=== PATIENT | male | born 1950 | race Two or more races ===

== ENCOUNTER 2020-10-29 15:28 | Outpatient (REF) | payer OTHER, SELFPAY ==
--- NOTE | 2020-10-29 15:36 | XR_ITS ---
EXAMINATION: X-RAY BILATERAL SHOULDERS CLINICAL INFORMATION: Shoulder pain COMPARISON: Right shoulder 05/04/2019 TECHNIQUE: Bilateral shoulder 4 views FINDINGS: Right shoulder: Mild AC joint arthritis. Subtle subchondral sclerosis of the superior aspect of the humeral head, with the previously noted articular surface irregularity not clearly evident in today's study. Small inferior glenoid spurring. No acute fractures seen. Left shoulder: Mild to moderate AC joint arthritis. No fracture or dislocation. Joint spaces are maintained. XR/XR shoulder LT min 2V IMPRESSION: Right shoulder: 1. Mild AC joint arthritis. 2. Subtle subchondral sclerosis of the superior aspect of the humeral head. No acute fracture seen. Left shoulder: 1. Mild to moderate AC joint arthritis. No acute findings.
--- NOTE | 2020-10-29 15:36 | XR_ITS ---
EXAMINATION: X-RAY BILATERAL SHOULDERS CLINICAL INFORMATION: Shoulder pain COMPARISON: Right shoulder 05/04/2019 TECHNIQUE: Bilateral shoulder 4 views FINDINGS: Right shoulder: Mild AC joint arthritis. Subtle subchondral sclerosis of the superior aspect of the humeral head, with the previously noted articular surface irregularity not clearly evident in today's study. Small inferior glenoid spurring. No acute fractures seen. Left shoulder: Mild to moderate AC joint arthritis. No fracture or dislocation. Joint spaces are maintained. XR/XR shoulder RT min 2V IMPRESSION: Right shoulder: 1. Mild AC joint arthritis. 2. Subtle subchondral sclerosis of the superior aspect of the humeral head. No acute fracture seen. Left shoulder: 1. Mild to moderate AC joint arthritis. No acute findings.
== END 2020-10-29 15:29 | disposition home or self-care (01) ==
LOC: HO.XRAY 15:28
PROVIDERS: PCP Physician Assistant; Visit Provider Physician Assistant
DX: M25.511 Pain in right shoulder (principal); M25.512 Pain in left shoulder
CPT/HCPCS: 73030

== ENCOUNTER 2020-10-30 06:05 | Outpatient (REF) | payer OTHER, SELFPAY ==
[2020-10-30 07:10] LABS: MANUAL DIFF FLAG NO
[2020-10-30 07:11] LABS: Basophils Percent Auto 0.3 % (0-2); Eosinophils Absolute Auto 0.2 X10*3/uL (0.0-0.4); Eosinophils Percent Auto 1.6 % (0-4); Hematocrit 39.5 % (42-52); Hemoglobin 12.1 g/dl (14.0-18.0); Imm Gran Abs Auto 0.01 X10*3/uL (0.00-0.03); Imm Gran Pct Auto 0.1 % (0.0-0.4); Lymphocytes Absolute Auto 2.9 X10*3/uL (1.2-4.9); Lymphocytes Percent Auto 30.2 % (20-40); Mean Corpuscular HGB Conc 30.6 g/dl (31.0-36.0); Mean Corpuscular Hemoglobin 25.1 pg (27.0-33.0); Monocytes Absolute Auto 0.8 X10*3/uL (0.1-1.2); Neutrophils Absolute Auto 5.8 X10*3/uL (2.0-8.3); Neutrophils Percent Auto 59.8 % (45-73); Platelet Count 256 X10*3/uL (160-400); Red Blood Count 4.82 X10*6/uL (4.60-5.80); Red Cell Distribution Width 14.9 % (11.0-16.0); White Blood Count 9.7 X10*3/uL (4.8-10.8)
[2020-10-30 07:39] LABS: Alanine Aminotransferase 12 U/L (0-40); Albumin Level 4.6 g/dL (3.5-5.0); Alkaline Phosphatase 70 U/L (39-117); Anion Gap 13 (12-20); Aspartate Amino Transferase 17 U/L (5-37); Bilirubin Total 0.7 mg/dL (0.0-1.0); Blood Urea Nitrogen 27 mg/dL (9-16); Calcium 9.6 mg/dL (8.4-10.2); Carbon Dioxide 31 mmol/L (22-29); Chloride 104 mmol/L (96-108); Cholesterol 138 mg/dL; Estimated Glomerular Filt Rate > 60; Glucose Fasting 129 mg/dL (60-99); HDL Cholesterol 52 mg/dL; LDL Cholesterol Calculated 76 mg/dl; Potassium 4.7 mmol/l (3.3-5.1); Sodium 143 mmol/L (135-145); Total Protein 7.2 g/dL (6.5-8.0); Triglycerides 54 mg/dL
[2020-10-30 07:41] LABS: Estimated Average Glucose 166 mg/dL; Hemoglobin A1c % 7.4 %
[2020-10-30 18:44] LABS: Creatinine Urine 175.71 mg/dL; Microalbum/Creatinine Ratio Ur 5.1 ug/mg cr
== END 2020-10-30 06:06 | disposition home or self-care (01) ==
LOC: HO.LAB 06:05
PROVIDERS: Visit Provider Physician Assistant
DX: I10 Essential (primary) hypertension (principal); E11.9 Type 2 diabetes mellitus without complications; E78.2 Mixed hyperlipidemia; Z12.5 Encounter for screening for malignant neoplasm of prostate
CPT/HCPCS: 36415; 80053; 80061; 82043; 83036; 84153; 84443; 85025

== ENCOUNTER 2021-06-08 08:04 | Emergency (ER) | payer OTHER, SELFPAY ==
--- NOTE | ~2021-06-08 | CT_ITS ---
EXAMINATION: CT BRAIN, CT CERVICAL SPINE WITHOUT CONTRAST. CT CHEST WITHOUT CONTRAST. CLINICAL INFORMATION: Fell and hit head. Rule out intracranial bleed. Pain left posterior rib. COMPARISON: CT brain 05/04/2019 TECHNIQUE: 5 mm thin axial and reformatted 2 mm thin sagittal and coronal images of brain were obtained. DLP 748 Subsequently axial 3 mm thin and reformatted 2 mm thin sagittal and coronal images of cervical spine were obtained. DLP 352 Axial 5 mm thin and reformatted 3 mm thin images of chest were obtained. DLP FINDINGS: BRAIN: There is no acute intra-axial, extra-axial bleed, masses or midline shift. There is no acute infarction in evolution. There is no edema or mass effect. The lateral ventricles are symmetrical in size and configuration without enlargement. Bone windows reveal no calvarial abnormality. No scalp soft tissue swelling seen. Bilateral paranasal sinuses and mastoid air cells are well-aerated. CERVICAL SPINE: On sagittal reconstructed images there is maintained cervical lordosis. There is a large anterior longitudinal bridging osteophytes from C3 through C7 vertebra. The craniovertebral junction and the C1-C2 alignment is normal. No visible acute fracture, dislocation or subluxation seen. The prevertebral and paravertebral soft tissues are normal. Visualized bilateral TM joints, mandible appears normal. The anterior neck soft tissues are normal. Visualized thyroid lobes, parotid and the submandibular gland appears symmetrical and normal. No abnormal neck lymphadenopathy seen. CHEST: The lungs are well-expanded and clear of acute pneumonic process. No lung contusion, mass or groundglass density seen. There is ill-defined small opacity left upper lobe measuring 3 to 4 mm image 15/25 and image 39/29, likely ill-defined parenchymal scarring or atelectasis. There is a 2 mm noncalcified nodule left lower lobe axial image 31/25.. There is a 5 mm calcified nodule left lower lobe, The thyroid lobes are symmetric and normal. The central trachea and the bronchi widely patent. Heart size and the great vessels are normal caliber. There are coronary artery calcifications present. There are benign pretracheal and paratracheal lymph nodes with a short axis measurement of 6 mm and less. There is no pleural effusion, thickening or pneumothorax. Bone windows reveal no visible left rib fracture or bony abnormality. Visualized liver, spleen, pancreas and bilateral adrenal glands are unremarkable. There is moderate spondylosis throughout dorsal spine. CT/CT cervical spine wo con IMPRESSION: No acute intracranial process seen. There is no acute fracture, dislocation or subluxation. There are large bridging ventral osteophytes from C3 to C7 vertebra. No acute process seen in the chest. There is bibasilar atelectasis and/or scarring. Is a calcified granuloma left lower lobe and ill-defined tiny opacity in the left upper lobe likely chronic scarring or developing atelectasis.
[2021-06-08 09:30] VITALS: BP 153/89; PULSE 70; RESP 18; TEMP 36.9; O2SAT 99; BMI 26.6
[2021-06-08 12:23] VITALS: BP 146/88; PULSE 80; RESP 18; O2SAT 100
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
--- NOTE | 2021-06-08 14:17 | ED.BACK ---
HPI - Back Pain/Injury General Chief Complaint: Back Pain/Injury Stated Complaint: fall Time Seen by Provider: 06/08/21 14:07 Source: patient Mode of arrival: ambulatory Limitations: no limitations History of Present Illness HPI Narrative: 70-year-old male with a past medical history of gout, hypertension, hyperlipidemia, [id number] diabetes here with complaints of upper back pain after mechanical fall Monday evening. Patient tells me that he tripped falling backwards hitting his upper back on the ground. Unsure if he hit his head but does not believe he lost consciousness. No anticoagulation use. Here complaining of upper back pain. No headache, vision changes, nausea, vomiting, dizziness. Pain is worsened with movement, deep breathing and palpation. Using Motrin at home with continued pain MD elicited complaint: fall Related Data Home Medications Medication Instructions Recorded Confirmed prednisone 1 mg tablet 4 mg PO DAILY 03/24/21 03/24/21 Previous Rx's Medication Instructions Recorded acetaminophen 500 mg tablet 500 mg PO Q6H PRN 30 Days #120 tab 03/24/21 allopurinol 300 mg tablet 300 mg PO DAILY 90 Days #90 tab 03/24/21 baclofen 10 mg tablet 10 mg PO DAILY 30 Days #30 tab 03/24/21 glyburide 2.5 mg tablet 2.5 mg PO DAILY 60 Days #60 tab 03/24/21 ibuprofen 800 mg tablet 800 mg PO TID 30 Days #90 tab 03/24/21 losartan 100 mg tablet 100 mg PO DAILY 90 Days #90 cap 03/24/21 metformin 1,000 mg tablet 1,000 mg PO BID #60 cap 03/24/21 metoprolol tartrate 50 mg tablet 75 mg PO BID 90 Days #270 tab 03/24/21 simvastatin 20 mg tablet 20 mg PO BEDTIME #90 cap 03/24/21 cyclobenzaprine 10 mg PO TID PRN #10 tab 06/08/21 lidocaine [Lidoderm] 1 patch TOPICAL DAILY #15 ea 06/08/21 Allergies Allergy/AdvReac Type Severity Reaction Status Date / Time celecoxib [From CELEBREX] Allergy Intermediate SWELLING Verified 06/08/21 09:30 TETANUS Allergy Unknown Unknown Verified 06/08/21 09:30 Review of Systems Review of Systems: Yes all other systems are reviewed and are negative Constitutional: Constitutional: Reports no additional constitutional complaints, Denies body ache(s), Denies chills, Denies fever(s), Denies headache(s) and Denies weakness Eyes: Eyes: Reports no additional eye complaints and Denies change in vision ENT: Reports system reviewed and no additional complaints, except as documented, Denies dizziness, Denies headache(s), Denies nasal congestion, Denies nasal discharge and Denies neck pain Cardiovascular: Cardiovascular: Reports no additional cardiovascular complaints, Denies chest pain, Denies leg edema and Denies dyspnea Respiratory: Respiratory: Reports no additional respiratory complaints, Denies cough and Denies dyspnea Gastrointestinal: Gastrointestinal: Reports no additional gastrointestinal complaints, Denies abdominal pain, Denies diarrhea, Denies nausea and Denies vomiting Genitourinary: Genitourinary: Denies urinary incontinence Musculoskeletal: Musculoskeletal: Reports no additional musculoskeletal complaints, Reports back pain, Denies arthralgias, Denies joint swelling, Denies neck pain, Denies numbness and Denies tingling Integumentary/Breasts: Skin/Breast: Reports system reviewed and no additional complaints, except as docu and Denies rash Neurologic: Reports system reviewed and no additional complaints, except as documented, Denies Abnormal speech present, Denies dizziness, Denies headache(s), Denies numbness, Denies tingling and Denies weakness PMFSH Past Medical History Attestation statement: The following information was validated with the patient. Source: old records reviewed and nursing notes reviewed Surgical History H/O left knee surgery History of hip surgery History of left knee replacement Family History Family History Father Heart attack Mother Diabetes Heart attack Family/Other Diabetes Social History Social History Alcohol intake: current Alcohol intake frequency: a few times a month Advance Directives: No Advance Directives Information Provided: No Current occupational status: employed Current occupation: [employer] Physical Exam Vital Signs: Vital Signs: Last Vital Signs Temp 98.5 F 06/08/21 09:30 Pulse 80 06/08/21 12:23 Resp 18 06/08/21 12:23 BP 146/88 H 06/08/21 12:23 Pulse Ox 100 06/08/21 12:23 Body Mass Index 26.6 Const: General: cooperative, healthy appearing, comfortable and no acute distress Orientation/consciousness: patient oriented x3 Limitations: no limitations HENMT: Head: Yes normal to inspection Ears: hearing grossly normal bilaterally General nose exam: Normal external nose present Face and sinus: Yes normal facial exam Mouth: Normal oral and palatal mucosa present Throat: Yes posterior oropharynx normal Eyes: General: appearance normal, both eyes and all related structures Pupils: Equal, round and reactive pupils present Neck: Neck: Yes normal visual inspection Chest: Chest palpation & inspection: normal inspection of the chest Resp: Effort & Inspection: normal respiratory effort Auscultation: clear to auscultation bilaterally Cardio: Rate: regular rate Rhythm: regular rhythm Peripheral pulses: Peripheral pulses 2+ throughout GI: Inspection: Yes normal to inspection Palpation (GI): Soft to palpation and nontender Auscultation: normal bowel sounds Back/Spine/Pelvis: Other: Upper thoracic tenderness with no step-offs or deformities. No ecchymosis or crepitus noted. Tenderness over the bilateral soft tissue thoracic area with no obvious ecchymosis. Tenderness over the left posterior ribs with no crepitus or deformity noted. Mild lower cervical midline tenderness with no step-offs or deformities. Full range of motion. Thoracic/Lumbar Spine: thoracic and lumbar spine normal to inspection Skin: General skin exam: no rashes or lesions noted Neuro: General: patient oriented x3, no focal motor deficits and normal sensation to monofilament Cranial nerves: Yes CN's II-XII intact bilaterally, Yes Equal, round and reactive pupils present, Yes Bilaterally intact EOM present, Yes Nystagmus not present, Yes Normal facial strength present and Yes Midline tongue present Cognition (Neuro): normal cognition Speech: No Abnormal speech present Gait exam (Neuro): Normal gait present Motor exam (neuro): 5/5 motor strength present throughout Sensory Exam: Normal double simultaneous stimulation for sensation Extrem: General: Yes normal to inspection Course Course Course Narrative: 70-year-old male here with upper back and lower neck pain after mechanical fall 2 days ago. Unsure of head injury. Normal neuro exam. Will check labs, CT chest/neck/head, provide analgesia and re-assess. 1600-CT shows no acute finding. Labs are unremarkable. Patient is feeling improved. Likely contusion. Reviewed worrisome signs symptoms of when to return to the emergency department. Comfortable discharge home. MDM - Back Pain/Injury MDM Narrative Medical decision making narrative: Contusion versus fracture Medical Records Attestation: I reviewed the patient's medical records. Lab Data Attestation: I reviewed the patient's lab results. Result diagrams: 06/08/21 14:27 06/08/21 14:27 Labs: Lab Results 06/08/21 06/08/21 Range/Units 14:27 14:27 WBC 7.2 (4.8-10.8) X10*3/uL RBC 5.05 (4.60-5.80) X10*6/uL Hgb 13.0 L (14.0-18.0) g/dl Hct 42.3 (42-52) % MCV 83.8 (80-98) fL MCH 25.7 L (27.0-33.0) pg MCHC 30.7 L (31.0-36.0) g/dl RDW 14.6 (11.0-16.0) % Plt Count 262 (160-400) X10*3/uL MPV 10.6 (9.4-12.4) fL Immature Gran % (Auto) 0.3 (0.0-0.4) % Neut % (Auto) 61.7 (45-73) % Lymph % (Auto) 29.0 (20-40) % [place] % (Auto) 7.5 (2-11) % Eos % (Auto) 1.1 (0-4) % Baso % (Auto) 0.4 (0-2) % Lymph # (Auto) 2.1 (1.2-4.9) X10*3/uL [place] # (Auto) 0.5 (0.1-1.2) X10*3/uL Eos # (Auto) 0.1 (0.0-0.4) X10*3/uL Baso # (Auto) 0.0 (0.0-0.2) X10*3/uL Abs Immat Gran (auto) 0.02 (0.00-0.03) X10*3/uL Absolute Neuts (auto) 4.5 (2.0-8.3) X10*3/uL Absolute Nucleated RBC 0.000 (0.0-0.012) X10*3/uL Nucleated RBC % (auto) 0.0 (0.0-0.2) /100WBC Sodium 144 (135-145) mmol/L Potassium 4.3 (3.3-5.1) mmol/L Chloride 108 (96-108) mmol/L Carbon Dioxide 27 (22-29) mmol/L Anion Gap 13 (12-20) BUN 21 H (9-16) mg/dL Creatinine 0.95 (0.5-1.4) mg/dL Estim Creat Clear Calc 72.0 Estimated GFR > 60 Random Glucose 157 H (60-115) mg/dL Calcium 9.7 (8.4-10.2) mg/dL Imaging Data CT chest/head/neck: Attestation: I personally reviewed and interpreted this imaging study as follows: Radiologist's impression: FINDINGS: BRAIN: There is no acute intra-axial, extra-axial bleed, masses or midline shift. There is no acute infarction in evolution. There is no edema or mass effect. The lateral ventricles are symmetrical in size and configuration without enlargement. Bone windows reveal no calvarial abnormality. No scalp soft tissue swelling seen. Bilateral paranasal sinuses and mastoid air cells are well-aerated. CERVICAL SPINE: On sagittal reconstructed images there is maintained cervical lordosis. There is a large anterior longitudinal bridging osteophytes from C3 through C7 vertebra. The craniovertebral junction and the C1-C2 alignment is normal. No visible acute fracture, dislocation or subluxation seen. The prevertebral and paravertebral soft tissues are normal. Visualized bilateral TM joints, mandible appears normal. The anterior neck soft tissues are normal. Visualized thyroid lobes, parotid and the submandibular gland appears symmetrical and normal. No abnormal neck lymphadenopathy seen. CHEST: The lungs are well-expanded and clear of acute pneumonic process. No lung contusion, mass or groundglass density seen. There is ill-defined small opacity left upper lobe measuring 3 to 4 mm image 15/25 and image 39/29, likely ill-defined parenchymal scarring or atelectasis. There is a 2 mm noncalcified nodule left lower lobe axial image 31/25.. There is a 5 mm calcified nodule left lower lobe, The thyroid lobes are symmetric and normal. The central trachea and the bronchi widely patent. Heart size and the great vessels are normal caliber. There are coronary artery calcifications present. There are benign pretracheal and paratracheal lymph nodes with a short axis measurement of 6 mm and less. There is no pleural effusion, thickening or pneumothorax. Bone windows reveal no visible left rib fracture or bony abnormality. Visualized liver, spleen, pancreas and bilateral adrenal glands are unremarkable. There is moderate spondylosis throughout dorsal spine. Discharge Plan Discharge Clinical Impression: Contusion of back wall of thorax Patient Disposition: Home, Self-Care Instructions: Contusion in Adults (ED) Additional Instructions: Heat or ice Gentle stretching Follow-up with primary care as needed Prescriptions: New cyclobenzaprine 10 mg tablet 10 mg PO TID PRN (Reason: muscle spasm) Qty: 10 RF: 0 lidocaine [Lidoderm] 5 % adhesive patch,medicated 1 patch topical DAILY Qty: 15 RF: 0 No Action prednisone 1 mg tablet 4 mg PO DAILY RF: 0 acetaminophen 500 mg tablet 500 mg PO Q6H PRN (Reason: fever) 30 Days Qty: 120 RF: 1 allopurinol 300 mg tablet 300 mg PO DAILY 90 Days Qty: 90 RF: 1 baclofen 10 mg tablet 10 mg PO DAILY 30 Days Qty: 30 RF: 1 ibuprofen 800 mg tablet 800 mg PO TID 30 Days Qty: 90 RF: 3 losartan 100 mg tablet 100 mg PO DAILY 90 Days Qty: 90 RF: 2 metformin 1,000 mg tablet 1,000 mg PO BID Qty: 60 RF: 5 metoprolol tartrate 50 mg tablet 75 mg PO BID 90 Days Qty: 270 RF: 1 simvastatin 20 mg tablet 20 mg PO BEDTIME Qty: 90 RF: 1 glyburide 2.5 mg tablet 2.5 mg PO DAILY 60 Days Qty: 60 RF: 0 Stand Alone Forms: Work/School Release Interventions: ED Discharge Assessment Last Done: 06/08/21 16:00 Discharge Date/Time: 06/08/21 16:02
[2021-06-08 14:32] LABS: MANUAL DIFF FLAG NO
[2021-06-08 14:33] LABS: Basophils Percent Auto 0.4 % (0-2); Eosinophils Absolute Auto 0.1 X10*3/uL (0.0-0.4); Eosinophils Percent Auto 1.1 % (0-4); Hematocrit 42.3 % (42-52); Imm Gran Abs Auto 0.02 X10*3/uL (0.00-0.03); Imm Gran Pct Auto 0.3 % (0.0-0.4); Lymphocytes Absolute Auto 2.1 X10*3/uL (1.2-4.9); Mean Corpuscular HGB Conc 30.7 g/dl (31.0-36.0); Mean Corpuscular Hemoglobin 25.7 pg (27.0-33.0); Mean Corpuscular Volume 83.8 fL (80-98); Mean Platelet Volume 10.6 fL (9.4-12.4); Monocytes Absolute Auto 0.5 X10*3/uL (0.1-1.2); Monocytes Percent Auto 7.5 % (2-11); Neutrophils Absolute Auto 4.5 X10*3/uL (2.0-8.3); Neutrophils Percent Auto 61.7 % (45-73); Platelet Count 262 X10*3/uL (160-400); Red Blood Count 5.05 X10*6/uL (4.60-5.80); Red Cell Distribution Width 14.6 % (11.0-16.0); White Blood Count 7.2 X10*3/uL (4.8-10.8)
[2021-06-08] MEDS: Morphine Sulfate 4 MG/ML CARTRIDGE IVPUSH (14:34)
[2021-06-08 14:59] LABS: Anion Gap 13 (12-20); Blood Urea Nitrogen 21 mg/dL (9-16); Calcium 9.7 mg/dL (8.4-10.2); Carbon Dioxide 27 mmol/L (22-29); Chloride 108 mmol/L (96-108); Estimated Glomerular Filt Rate > 60; Glucose Random 157 mg/dL (60-115); Potassium 4.3 mmol/L (3.3-5.1); Sodium 144 mmol/L (135-145)
== END 2021-06-08 16:02 | disposition home or self-care (01) ==
PROVIDERS: Nurse Practitioner Family; Emergency Provider Emergency Medicine Emergency Medical Services; PCP Physician Assistant
DX: S20.222A Contusion of left back wall of thorax, initial encounter (principal); W17.89XA Other fall from one level to another, initial encounter; E11.9 Type 2 diabetes mellitus without complications; I10 Essential (primary) hypertension; Y93.9 Activity, unspecified; Y92.9 Unspecified place or not applicable; Y99.9 Unspecified external cause status
CPT/HCPCS: 36415; 70450; 71250; 72125; 80048; 85025; 96374; 99284; J2270

== ENCOUNTER 2021-06-30 07:57 | Outpatient (REF) | payer OTHER, SELFPAY | END 2021-06-30 07:58 | disposition home or self-care (01) | LOC: HO.LAB 07:57 | PROVIDERS: PCP Physician Assistant; Visit Provider Internal Medicine | DX: Z20.822 Contact with and (suspected) exposure to COVID-19 (principal) | CPT/HCPCS: C9803; U0003; U0005 ==

== ENCOUNTER 2021-08-05 05:59 | Outpatient (REF) | payer OTHER, SELFPAY ==
[2021-08-05 07:30] LABS: Hematocrit 38.4 % (42-52); Hemoglobin 11.6 g/dl (14.0-18.0); Mean Corpuscular HGB Conc 30.2 g/dl (31.0-36.0); Mean Corpuscular Hemoglobin 25.2 pg (27.0-33.0); Mean Corpuscular Volume 83.5 fL (80-98); Mean Platelet Volume 11.2 fL (9.4-12.4); Platelet Count 260 X10*3/uL (160-400); Red Cell Distribution Width 14.8 % (11.0-16.0); White Blood Count 7.5 X10*3/uL (4.8-10.8)
[2021-08-05 07:44] LABS: Alanine Aminotransferase 13 U/L (0-40); Albumin Level 4.3 g/dL (3.5-5.0); Alkaline Phosphatase 56 U/L (39-117); Anion Gap 10 (12-20); Aspartate Amino Transferase 17 U/L (5-37); Bilirubin Total 0.8 mg/dL (0.0-1.0); Blood Urea Nitrogen 20 mg/dL (9-16); Calcium 9.6 mg/dL (8.4-10.2); Carbon Dioxide 28 mmol/L (22-29); Chloride 106 mmol/L (96-108); Cholesterol 179 mg/dL; Estimated Glomerular Filt Rate > 60; Glucose Fasting 107 mg/dL (60-99); HDL Cholesterol 64 mg/dL; LDL Cholesterol Calculated 102 mg/dl; Sodium 140 mmol/L (135-145); Total Protein 6.8 g/dL (6.5-8.0); Triglycerides 66 mg/dL
[2021-08-05 07:47] LABS: Creatinine Urine 72.11 mg/dL; Microalbumin Urine < 5.0 mg/L
[2021-08-05 08:06] LABS: Prostate Specific Antigen Scr 0.65 ng/mL (<0.05-4.0); TSH reflex Free T4 2.25 uIU/mL (0.32-4.0)
== END 2021-08-05 06:00 | disposition home or self-care (01) ==
LOC: HO.LAB 05:59
PROVIDERS: PCP Physician Assistant; Visit Provider Physician Assistant
DX: Z12.5 Encounter for screening for malignant neoplasm of prostate (principal); E78.2 Mixed hyperlipidemia; I10 Essential (primary) hypertension
CPT/HCPCS: 36415; 80053; 80061; 82043; 84153; 84443; 85027

== ENCOUNTER 2021-11-03 07:02 | Day surgery (SDC) | payer OTHER, SELFPAY ==
[2021-10-27 10:01] VITALS: BMI 26.5
--- NOTE | 2021-11-01 13:11 | P.CONAN_ITS ---
Documented by User: Jessie Nur NP 11/01/21 13:12 HPI - Anesthesia Eval Consult details Narrative: 70yo M for Colonoscopy PMFSH Active Problems Active Problems: All Active Problems (Updated 10/27/21 @ 09:55 by Divya Echevarria RN) HTN (hypertension) (Acute) DMII (diabetes mellitus, type 2) (Acute) HLD (hyperlipidemia) (Acute) Left shoulder pain (Acute) Right shoulder pain (Acute) Annual physical exam (Acute) Gout (Acute) Tubular adenoma of colon (Acute) Past Medical History Medical History (Updated 10/27/21 @ 09:55 by Divya Echevarria RN) Arthritis DM type 2 (diabetes mellitus, type 2) Gout HTN (hypertension) Hyperlipidemia On beta radha at home Family History Family History Father Heart attack Mother Diabetes Heart attack Family/Other Diabetes Surgical History Surgical History (Updated 10/27/21 @ 09:55 by Divya Echevraria RN) H/O left knee surgery History of esophagogastroduodenoscopy (EGD) History of hip surgery History of left knee replacement Hx of colonoscopy Social History Social History Housing: House Alcohol intake: current Alcohol intake frequency: a few times a month Patient Tobacco Use Status: Never used Tobacco Tobacco use type: Cigarette e-Cigarette/Vaping Use: Never Used Second Hand Smoke Exposure: No Are you DNR?: No Advance Directives: No Advance Directives Information Provided: No Advance Directives on File: No Recently lost weight without trying: No Eating poorly because of decreased appetite: No Nutrition Risks: No Nutritional Risk Current occupational status: employed Current occupation: [employer] Allergies Allergy/AdvReac Type Severity Reaction Status Date / Time celecoxib [From CELEBREX] Allergy Intermediate SWELLING Verified 11/03/21 07:14 TETANUS Allergy Unknown Unknown Verified 11/03/21 07:14 Home Medications Medication Instructions Recorded Confirmed Last Taken Type prednisone 1 mg tablet 4 mg PO DAILY 03/24/21 10/27/21 Unknown History glyburide 2.5 mg tablet 1 tab PO DAILY 10/27/21 10/27/21 Unknown History Exam Exam Date and Time: November 01, 2021 1311 Height,Weight and Vital Signs: Height 5 ft 7.5 in Weight 78.018 kg Pertinent Lab Results Pertinent Lab Results: Laboratory Tests 08/05/21 08/05/21 06:10 06:10 WBC 7.5 Hgb 11.6 L Hct 38.4 L Plt Count 260 Sodium 140 Potassium 4.0 Chloride 106 Carbon Dioxide 28 BUN 20 H Creatinine 0.92 Assessment and Plan Assessment Anesthesia Assessment: Chart Reviewed Documented by User: Bebo Alvarenga 11/03/21 07:31 [facility] Past Medical History Medical History (Updated 10/27/21 @ 09:55 by Divya Echevarria RN) Arthritis DM type 2 (diabetes mellitus, type 2) Gout HTN (hypertension) Hyperlipidemia On beta radha at home Functional capacity: independent ambulation Family History Family History Father Heart attack Mother Diabetes Heart attack Family/Other Diabetes Family history of problems with anesthesia: No Surgical History Surgical History (Updated 10/27/21 @ 09:55 by Divya Echevarria RN) H/O left knee surgery History of esophagogastroduodenoscopy (EGD) History of hip surgery History of left knee replacement Hx of colonoscopy History of Problems with Anesthesia: No Social History Social History Housing: House Alcohol intake: current Alcohol intake frequency: a few times a month Patient Tobacco Use Status: Never used Tobacco Tobacco use type: Cigarette e-Cigarette/Vaping Use: Never Used Second Hand Smoke Exposure: No Are you DNR?: No Advance Directives: No Advance Directives Information Provided: No Advance Directives on File: No Recently lost weight without trying: No Eating poorly because of decreased appetite: No Nutrition Risks: No Nutritional Risk Current occupational status: employed Current occupation: [employer] Meds Allergies Allergy/AdvReac Type Severity Reaction Status Date / Time celecoxib [From CELEBREX] Allergy Intermediate SWELLING Verified 11/03/21 07:14 TETANUS Allergy Unknown Unknown Verified 11/03/21 07:14 Home Medications Medication Instructions Recorded Confirmed Last Taken Type prednisone 1 mg tablet 4 mg PO DAILY 03/24/21 10/27/21 Unknown History glyburide 2.5 mg tablet 1 tab PO DAILY 10/27/21 10/27/21 Unknown History Exam Airway Mallampati Class: III TM Dist: >3cm Neck ROM: Full Denture: Upper Loose/Missing/Broken Teeth: Yes Heart: rrr Lungs: bl breath sounds Assessment and Plan Final Anesthetic Review Family History of Problems with Anesthesia: No History of Problems with Anesthesia: No NPO: Yes ASA Class: II Final Preanesthetic Review: Meds/Allgs Chart Reviewed and Anes Risks/Benef Reviewed Anesthetic Plan Anesthetic Plan: MAC: Disposition: Standard PACU
[2021-11-03 07:44] VITALS: BP 135/78; PULSE 76; RESP 16; TEMP 36.3; O2SAT 99
[2021-11-03 07:48] LABS: Glucose, Whole Blood 181 mg/dL (60-115)
[2021-11-03] MEDS: Lactated Ringers 1,000 ML 100 ML IVCONT (08:09)
[2021-11-03 09:06] VITALS: BP 91/58; PULSE 69; RESP 15; TEMP 36.4; O2SAT 99
--- NOTE | 2021-11-03 09:06 | PM.OP ---
Brief Operative Note Date of Service: 11/03/21 Pre-op diagnosis: Screening Post-op diagnosis: other (Distal rectal polyps) Procedure: Colonoscopy to the cecum and TI with hot snare polypectomy x 2 Surgeon: Agustin Smith Anesthesia: MAC Was an Audio Visual Specialist used for this Procedure?: No Estimated blood loss (mL): 1.0 Pathology: other (A. Distal rectal polyps) Condition: stable Disposition: PACU
[2021-11-03 09:21] VITALS: BP 119/77; PULSE 68; RESP 16; TEMP 36.4; O2SAT 98
--- NOTE | 2021-11-03 09:30 | OP_ITS ---
SURGEON: Agusitn Smith MD INDICATIONS: The patient presents for evaluation of colorectal cancer screening and personal history of tubular adenoma of the colon. Full consent has been obtained from him for this, including risks of bleeding and perforation. PREOPERATIVE DIAGNOSIS: POSTOPERATIVE DIAGNOSIS: PROCEDURE PERFORMED: Colonoscopy to the cecum and terminal ileum with snare polypectomy. ESTIMATED BLOOD LOSS: COMPLICATIONS: ANESTHESIA: Monitored anesthesia care. ASSISTANTS: SPECIMENS: PREOPERATIVE DIAGNOSES: Colorectal cancer screening and personal history of tubular adenoma of the colon. POSTOPERATIVE DIAGNOSES: Colorectal cancer screening, personal history of tubular adenoma of the colon, distal rectal polyp, diverticulosis, internal hemorrhoids. DESCRIPTION OF PROCEDURE: The patient was placed in the left lateral decubitus position. The digital rectal exam revealed no abnormalities other than some hemorrhoidal tissue. The Olympus video pediatric colonoscope was entered into the rectum and advanced easily to the cecum. Once in the cecum, I did identify normal-appearing cecal pouch with appendiceal orifice and a normal-appearing ileocecal valve. The terminal ileum was cannulated and appeared normal. Scope was withdrawn back in the colon. The entire cecum and ileocecal valve appeared normal. The scope was slowly withdrawn assessing all mucosal surfaces carefully. Preparation was excellent. There was a [id number] amount of sigmoid diverticulosis. There was no sign of any colitis nor angiodysplasia. In the rectum, scope was retroflexed visualizing internal hemorrhoids as well as 2 distal rectal polyps. One was approximately 1 cm in diameter and the other was approximately 5 mm in diameter. These were adjacent to each other. The larger polyp was removed by snare polypectomy with piecemeal resection. This was a hot snare. I also used the hot snare to remove the smaller polyp. All specimens were placed in the same container by suction. The polypectomy sites appeared clean, without any sign of residual polyp nor bleeding. The scope was straightened and withdrawn from the patient. He tolerated the procedure well and was returned to recovery area in stable condition. IMPRESSION: 1. Distal rectal polyp, status post hot snare polypectomy. 2. Diverticulosis. 3. Internal hemorrhoids. PLAN: The results of the pathology will be checked. I would recommend a repeat colonoscopy in 5 years for further surveillance. He was advised not to use any aspirin and NSAIDs for 1 week. MD DEISY Duvall/RIGOBERTO / [phone]
--- NOTE | 2021-11-03 10:02 | PC.NURSE ---
Patient is bilinqual. , patient states he does not need an Home Organizer and understands all instructions provided
== END 2021-11-03 10:08 | disposition home or self-care (01) ==
PROVIDERS: PCP Physician Assistant; Visit Provider Internal Medicine
PROC: 0DJD8ZZ Inspection of Lower Intestinal Tract, Via Natural or Artificial Opening Endoscopic (ICD-10-PCS; CPT 45378; principal; 2021-11-03 08:10)
DX: Z12.11 Encounter for screening for malignant neoplasm of colon (principal); Z86.010 Personal history of colon polyps; D12.8 Benign neoplasm of rectum; K57.30 Diverticulosis of large intestine without perforation or abscess without bleeding; K64.8 Other hemorrhoids; I10 Essential (primary) hypertension; E78.5 Hyperlipidemia, unspecified; M10.9 Gout, unspecified; E11.9 Type 2 diabetes mellitus without complications; Z79.84 Long term (current) use of oral hypoglycemic drugs; Z79.52 Long term (current) use of systemic steroids; Z79.899 Other long term (current) drug therapy; Z88.8 Allergy status to other drugs, medicaments and biological substances
CPT/HCPCS: 45385; 82947; 88305

== ENCOUNTER 2022-01-06 06:38 | Outpatient (REF) | payer OTHER, SELFPAY ==
[2022-01-06 06:56] LABS: Hemoglobin 11.5 g/dl (14.0-18.0); Mean Corpuscular HGB Conc 31.1 g/dl (31.0-36.0); Mean Corpuscular Hemoglobin 25.7 pg (27.0-33.0); Mean Corpuscular Volume 82.6 fL (80.0-98.0); Mean Platelet Volume 10.2 fL (9.4-12.4); Platelet Count 249 X10*3/uL (160-400); Red Blood Count 4.48 X10*6/uL (4.60-5.80); Red Cell Distribution Width 14.6 % (11.0-16.0); White Blood Count 6.7 X10*3/uL (4.8-10.8)
[2022-01-06 07:30] LABS: Alanine Aminotransferase 10 U/L (0-40); Albumin Level 4.1 g/dL (3.5-5.0); Alkaline Phosphatase 65 U/L (39-117); Anion Gap 12 (12-20); Aspartate Amino Transferase 15 U/L (5-37); Bilirubin Total 0.9 mg/dL (0.0-1.0); Blood Urea Nitrogen 16 mg/dL (9-16); Calcium 9.5 mg/dL (8.4-10.2); Carbon Dioxide 27 mmol/L (22-29); Chloride 105 mmol/L (96-108); Estimated Glomerular Filt Rate > 60; Glucose Fasting 153 mg/dL (60-99); Potassium 4.4 mmol/L (3.3-5.1); Sodium 140 mmol/L (135-145); Total Protein 6.8 g/dL (6.5-8.0)
[2022-01-06 07:53] LABS: TSH reflex Free T4 2.52 uIU/mL (0.32-4.0)
== END 2022-01-06 06:39 | disposition home or self-care (01) ==
LOC: HO.LAB 06:38
PROVIDERS: PCP Physician Assistant; Visit Provider Physician Assistant
DX: E11.9 Type 2 diabetes mellitus without complications (principal); I10 Essential (primary) hypertension
CPT/HCPCS: 36415; 80053; 84443; 85027

== ENCOUNTER 2022-06-02 06:16 | Outpatient (REF) | payer OTHER, MEDICARE, SELFPAY ==
[2022-06-02 07:12] LABS: Hematocrit 36.3 % (42.0-52.0); Hemoglobin 11.3 g/dl (14.0-18.0); Mean Corpuscular HGB Conc 31.1 g/dl (31.0-36.0); Mean Corpuscular Hemoglobin 25.7 pg (27.0-33.0); Mean Corpuscular Volume 82.7 fL (80.0-98.0); Mean Platelet Volume 10.7 fL (9.4-12.4); Platelet Count 293 X10*3/uL (160-400); Red Blood Count 4.39 X10*6/uL (4.60-5.80); Red Cell Distribution Width 14.9 % (11.0-16.0); White Blood Count 8.8 X10*3/uL (4.8-10.8)
[2022-06-02 07:46] LABS: Estimated Average Glucose 174 mg/dL; Hemoglobin A1c % 7.7 %
[2022-06-02 07:51] LABS: Alanine Aminotransferase 10 U/L (0-40); Albumin Level 4.4 g/dL (3.5-5.0); Alkaline Phosphatase 63 U/L (39-117); Anion Gap 12 (12-20); Aspartate Amino Transferase 14 U/L (5-37); Bilirubin Total 0.6 mg/dL (0.0-1.0); Blood Urea Nitrogen 20 mg/dL (9-16); Calcium 9.4 mg/dL (8.4-10.2); Carbon Dioxide 27 mmol/L (22-29); Chloride 107 mmol/L (96-108); Cholesterol 207 mg/dL; Estimated Glomerular Filt Rate > 60; Glucose Fasting 118 mg/dL (60-99); HDL Cholesterol 55 mg/dL; LDL Cholesterol Calculated 133 mg/dl; Potassium 4.7 mmol/L (3.3-5.1); Sodium 141 mmol/L (135-145); TSH reflex Free T4 2.11 uIU/mL (0.32-4.0); Triglycerides 95 mg/dL
[2022-06-02 09:33] LABS: Creatinine Urine 114.35 mg/dL; Microalbum/Creatinine Ratio Ur 11.3 ug/mg cr
== END 2022-06-02 06:17 | disposition home or self-care (01) ==
LOC: HO.LAB 06:16
PROVIDERS: PCP Physician Assistant; Visit Provider Physician Assistant
DX: E11.9 Type 2 diabetes mellitus without complications (principal)
CPT/HCPCS: 36415; 80053; 80061; 82043; 83036; 84443; 85027

== ENCOUNTER 2022-11-03 10:55 | Outpatient (REF) | payer OTHER, MEDICARE, SELFPAY ==
[2022-11-03 11:08] LABS: MANUAL DIFF FLAG NO
--- NOTE | 2022-11-03 11:08 | ECG_ITS ---
Test Reason : i49.3 Blood Pressure : / mmHG Vent. Rate : 072 BPM Atrial Rate : 072 BPM P-R Int : 122 ms QRS Dur : 104 ms QT Int : 374 ms P-R-T Axes : 053 -67 053 degrees QTc Int : 409 ms Sinus rhythm with Premature supraventricular complexes and with occasional Premature ventricular complexes Left anterior fascicular block Abnormal ECG No previous ECGs available Referred By: Nikolas Stewart Electronically Signed By:Mike Mart
[2022-11-03 11:38] LABS: Basophils Percent Auto 0.5 % (0-2); Eosinophils Absolute Auto 0.2 X10*3/uL (0.0-0.4); Eosinophils Percent Auto 1.7 % (0-4); Hematocrit 38.3 % (42.0-52.0); Hemoglobin 11.8 g/dl (14.0-18.0); Imm Gran Abs Auto 0.02 X10*3/uL (0.00-0.03); Imm Gran Pct Auto 0.2 % (0.0-0.4); Lymphocytes Absolute Auto 2.7 X10*3/uL (1.2-4.9); Lymphocytes Percent Auto 30.1 % (20-40); Mean Corpuscular HGB Conc 30.8 g/dl (31.0-36.0); Mean Corpuscular Hemoglobin 25.4 pg (27.0-33.0); Mean Corpuscular Volume 82.4 fL (80.0-98.0); Mean Platelet Volume 10.6 fL (9.4-12.4); Monocytes Absolute Auto 0.7 X10*3/uL (0.1-1.2); Monocytes Percent Auto 7.8 % (2-11); Neutrophils Absolute Auto 5.3 x10*3/uL (2.0-8.3); Neutrophils Percent Auto 59.7 % (45-73); Platelet Count 288 X10*3/uL (160-400); Red Blood Count 4.65 X10*6/uL (4.60-5.80); Red Cell Distribution Width 13.6 % (11.0-16.0); White Blood Count 8.9 X10*3/uL (4.8-10.8)
[2022-11-03 11:48] LABS: Estimated Average Glucose 169 mg/dL; Hemoglobin A1c % 7.5 %
[2022-11-03 13:21] LABS: Alanine Aminotransferase 11 U/L (0-40); Albumin Level 4.2 g/dL (3.5-5.0); Alkaline Phosphatase 71 U/L (39-117); Anion Gap 13 (12-20); Aspartate Amino Transferase 15 U/L (5-37); Bilirubin Total 0.8 mg/dL (0.0-1.0); Blood Urea Nitrogen 22 mg/dL (9-16); Calcium 9.4 mg/dL (8.4-10.2); Carbon Dioxide 27 mmol/L (22-29); Chloride 107 mmol/L (96-108); Cholesterol 186 mg/dL; Estimated Glomerular Filt Rate > 60; Glucose Fasting 131 mg/dL (60-99); HDL Cholesterol 54 mg/dL; LDL Cholesterol Calculated 111 mg/dl; Potassium 4.3 mmol/L (3.3-5.1); Prostate Specific Antigen Scr 0.85 ng/mL (<0.05-4.0); Sodium 143 mmol/L (135-145); TSH reflex Free T4 1.61 uIU/mL (0.32-4.0); Total Protein 6.7 g/dL (6.5-8.0); Triglycerides 106 mg/dL
== END 2022-11-03 10:56 | disposition home or self-care (01) ==
LOC: HO.LAB 10:55
PROVIDERS: PCP Physician Assistant; Visit Provider Physician Assistant
DX: Z12.5 Encounter for screening for malignant neoplasm of prostate (principal); E11.65 Type 2 diabetes mellitus with hyperglycemia; I10 Essential (primary) hypertension; E78.2 Mixed hyperlipidemia; I49.3 Ventricular premature depolarization
CPT/HCPCS: 36415; 80053; 80061; 83036; 84153; 84443; 85025; 85027; 93005

== ENCOUNTER 2023-05-26 06:22 | Outpatient (REF) | payer OTHER, MEDICARE, SELFPAY ==
[2023-05-26 07:23] LABS: Hematocrit 32.8 % (42.0-52.0); Hemoglobin 10.2 g/dl (14.0-18.0); Mean Corpuscular HGB Conc 31.1 g/dl (31.0-36.0); Mean Corpuscular Hemoglobin 24.5 pg (27.0-33.0); Mean Corpuscular Volume 78.8 fL (80.0-98.0); Mean Platelet Volume 10.8 fL (9.4-12.4); Platelet Count 281 X10*3/uL (160-400); Red Blood Count 4.16 X10*6/uL (4.60-5.80); Red Cell Distribution Width 15.5 % (11.0-16.0); White Blood Count 8.9 X10*3/uL (4.8-10.8)
[2023-05-26 08:42] LABS: Alanine Aminotransferase 10 U/L (0-40); Alkaline Phosphatase 56 U/L (39-117); Anion Gap 11 (12-20); Aspartate Amino Transferase 16 U/L (5-37); Bilirubin Total 0.8 mg/dL (0.0-1.0); Blood Urea Nitrogen 20 mg/dL (9-16); Calcium 9.7 mg/dL (8.4-10.2); Carbon Dioxide 26 mmol/L (22-29); Chloride 110 mmol/L (96-108); Cholesterol 158 mg/dL; Estimated Glomerular Filt Rate > 60; Glucose Fasting 92 mg/dL (60-99); HDL Cholesterol 52 mg/dL; LDL Cholesterol Calculated 92 mg/dl; Potassium 3.5 mmol/L (3.3-5.1); Sodium 143 mmol/L (135-145); Total Protein 6.8 g/dL (6.5-8.0); Triglycerides 74 mg/dL
[2023-05-26 15:02] LABS: Creatinine Urine 219.99 mg/dL; Microalbum/Creatinine Ratio Ur 7.7 ug/mg cr
== END 2023-05-26 06:23 | disposition home or self-care (01) ==
LOC: HO.LAB 06:22
PROVIDERS: PCP Physician Assistant; Visit Provider Physician Assistant
DX: E11.65 Type 2 diabetes mellitus with hyperglycemia (principal)
CPT/HCPCS: 36415; 80053; 80061; 82043; 85027

== ENCOUNTER 2023-07-05 15:28 | Outpatient (AMB) | payer OTHER, MEDICARE, SELFPAY ==
[2023-07-05 15:56] VITALS: BP 120/70; PULSE 76; O2SAT 98; BMI 24.5
--- NOTE | 2023-07-05 15:56 | MHC.PC.OV ---
Vital Signs 07/05/23 15:56 Height 5 ft 8 in Weight 161 lb 6 oz BMI 24.5 BP 120/70 Blood Pressure Location Lt brachial Position Sitting Pulse 76 Pulse Source Pulse Oximeter Pulse Oximetry (%) 98 Oxygen Delivery Method Room Air Intake Visit Reasons: f/u DMII/ HTN/ hip osteoarthritis Intake Note: Patient is here to follow up on DMII, HTN and Osteoarthritis of the Hips. Assistant Branch Manager Required: No Accompanied by: Self / Same As Patient Allergies celecoxib [From CELEBREX] Allergy (Intermediate, Verified 07/05/23 16:21) SWELLING TETANUS Allergy (Unknown, Verified 07/05/23 16:21) Unknown influenza virus vaccine bivalent Adverse Reaction (Intermediate, Verified 07/05/23 16:21) illness Medication List - Last Reconciled 07/05/23 by Nikolas Stewart PA-C acetaminophen 500 mg PO Q6H PRN 30 days allopurinol 300 mg PO DAILY 90 days blood sugar diagnostic ([employer] Ultra Test strips) As directed blood-glucose meter ([employer] Ultra2 Meter) As directed ibuprofen 800 mg PO TID 30 days lancets ([employer]Touch UltraSoft Lancets) As directed lidocaine 5% 1 patch topical DAILY 30 days losartan 100 mg PO DAILY 90 days metformin 1,000 mg PO BID metoprolol tartrate 50 mg PO BID 90 days pantoprazole 20 mg PO DAILY 30 days pioglitazone (Actos) 30 mg PO DAILY 30 days tramadol 50 mg PO BID PRN 7 days Tobacco use date assessed: 12/22/22 Fall risk assessment: No Falls in past year Last assessed Fall Risk: 07/05/23 Dental Screening Dental Screen Date: 07/05/23 Did you have a dental visit in the last 12 months?: Yes Did you have a dental problem in the last 6 months where you did not have access to dental care?: No Was dental information given to patient?: Patient has dentist HPI f/u DMII/ HTN/ hip osteoarthritis HPI Details Olman is a 72-year-old male here today for f/u visit.. Patient has a past medical history of hypertension, hyperlipidemia, gout,, diabetes, cervical radicuopathy. ? .. ? HTN:? Patient's blood acceptable today in office. ? Patient has been compliant with his medications. Patient denies any headaches, chest pain, shortness of breath. ? .. ? DMII: .? Patient has started regularly checking his blood sugars and reports normal readings at home. Today's A1c is 6.4 .. Arthritis:? He is followed by senior programmer at the arthritic treatment center continues on prednisone 1 mg daily for his advanced arthritis.? . He has followed up with an orthopedic surgeon about his left hip and received a cortisone injection which did not provide him any pain relief. He has followed up with his orthopedic surgeon in regards to his end-stage right hip osteoarthritis.? He reports he will be scheduled surgery in December of 2022 He continues with use of ibuprofen though reports having stomach pains now.? Will supply him with p.r.n. use of tramadol 50 mg for pain scales of 8-10. 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 Alcohol use disorder:? He has reduced his alcohol intake in order to gain better control over his diabetes. Also reports he has been in too much left hip pain?. [facility] Medical History Arthritis DM type 2 (diabetes mellitus, type 2) Gout HTN (hypertension) Hyperlipidemia On beta radha at home Surgical History H/O left knee surgery History of esophagogastroduodenoscopy (EGD) History of hip surgery History of left knee replacement Hx of colonoscopy Family History Father Heart attack Mother Diabetes Heart attack Family/Other Diabetes Social History Housing: House Alcohol intake: current Alcohol intake frequency: a few times a month Patient Tobacco Use Status: Never used Tobacco e-Cigarette/Vaping Use: Never Used Second Hand Smoke Exposure: No service: No Current occupational status: employed Current occupation: [employer] Current occupational exposures/hazards: No Cognitive needs: Yes Hearing needs: No Vision needs: Yes Questionnaire Thrive Questionnaire Date Thrive assessed: 12/22/22 VARSHA-7 AMB Questionnaire VARSHA-7 Date VARSHA - 7 assessed: 12/22/22 Source: Developed by Drs. Agustin Coreas, Amanda Simon, Miles Bush and colleagues, with an educational ellen from [employer]. Review of Systems Const Denies headache(s) Eyes Denies loss of vision ENT Denies vertigo, Denies dizziness, Denies headache(s) and Denies sore throat Card Denies chest pain, Denies leg edema and Denies lightheadedness Resp Denies cough, Denies hemoptysis and Denies wheezing GI Denies abdominal pain, Denies melena, Denies constipation, Denies diarrhea and Denies vomiting Denies dysuria, Denies urinary frequency and Denies urinary urgency Musc Denies arthralgias, Denies joint swelling, Denies numbness and Denies tingling Neuro Denies Abnormal speech present, Denies behavioral changes, Denies vertigo, Denies dizziness, Denies headache(s), Denies loss of vision, Denies memory loss, Denies numbness and Denies tingling Psych Denies anxiety, Denies behavioral changes, Denies depression, Denies memory loss and Denies panic attacks Ramon/Lymph Denies easy bleeding and Denies easy bruising Aller/Immun Denies wheezing Physical exam (Primary Care) Vital Signs: Last Vital Signs Pulse 76 07/05/23 15:56 BP 120/70 07/05/23 15:56 Pulse Ox 98 07/05/23 15:56 Oxygen Delivery Method Room Air 07/05/23 15:56 BMI result Body Mass Index 24.5 Tobacco/Smoking Status: Tobacco use Status Tobacco use date assessed 12/22/22 07/05/23 15:58 Patient Tobacco Use Status Never used Tobacco 07/05/23 15:58 Tobacco use type 03/22/23 15:56 e-Cigarette/Vaping Use Never Used 07/05/23 15:58 Thrive Assessment: Date of Thrive Assessment Date Thrive assessed 12/22/22 07/05/23 15:58 Const General: healthy appearing, no acute distress, alert and awake Nutritional Appearance: well nourished Orientation/consciousness: oriented to person, oriented to place and oriented to time HENMT Ears: TM's normal bilaterally General nose exam: Normal nasal mucous membranes and turbinates present Eyes Conjunctivae: conjunctivae normal Sclerae: sclerae normal Pupils: Equal, round and reactive pupils present Neck Neck: Yes no lymphadenopathy and Yes no JVD Thyroid: Thyroid normal Carotids: no bruits Resp Effort & Inspection: normal respiratory effort and not tachypneic Auscultation: no crackles, no rales, no rhonchi and no wheezes Cardio Rate: regular rate Rhythm: regular rhythm Heart sounds: no murmurs and normal S1 and S2 GI Palpation (GI): Soft to palpation, nontender, no hepatomegaly and no splenomegaly Auscultation: normal bowel sounds Skin General skin exam: no rashes or lesions noted and dry skin Neuro General: oriented to person, oriented to place and oriented to time Cranial nerves: Yes Equal, round and reactive pupils present Speech: No Abnormal speech present Gait exam (Neuro): Normal gait present Motor exam (neuro): no tremor noted Extrem Other: LEFT HIP LIMITED RANGE OF MOTION, AMBULATING WITH AN ANTALGIC GAIT.. APPEARS TO BE IN OBVIOUS PAIN DURING AMBULATION. Right upper extremity: full ROM Left upper extremity: full ROM Right lower extremity: full ROM; no edema Left lower extremity: full ROM; no edema Psych Mental Status: mental status grossly normal Speech and movement: Normal speech and movement present Affect: normal affect Attitude: cooperative Thought process: Normal thought process present Results AMB Hemoglobin A1c AMB Hemoglobin A1c 6.4 % Last Edit by TERRI Perez on 07/05/23 16:13 Results Reviewed Results Reviewed: Laboratory Last Values Hgb A1c (Clinic) 6.4 % (4.0-6.0) H 07/05/23 15:42 Assessment and Plan Assessment & Plan (1) Osteoarthritis of left hip: Code(s): M16.12 - Unilateral primary osteoarthritis, left hip Qualifiers: Osteoarthritis type: primary Qualified Code(s): M16.12 - Unilateral primary osteoarthritis, left hip Plan: Patient continues to have moderate to severe left upper hip pain and decreased range of motion. Was followed by Orthopedic in [place] though has lost follow-up. At the time his A1c is above 8 was told he needed to get better glycemic control before candidacy for total hip arthroplasty. Now A1c is 6.4 and would like to see orthopedics about total hip arthroplasty. As for his pain management at this time advised on Tylenol and ibuprofen as first-line drugs for his pain. Will supply him with tramadol to use on a p.r.n. basis for pain scales from 8-10. (2) HTN (hypertension): Code(s): I10 - Essential (primary) hypertension Qualifiers: Hypertension type: essential hypertension Qualified Code(s): I10 - Essential (primary) hypertension Plan: Patient's blood pressure acceptable today in office. Will continue his current dose of losartan and metoprolol. Goal blood pressure to be below 40/90 (3) DMII (diabetes mellitus, type 2): Code(s): E11.9 - Type 2 diabetes mellitus without complications Qualifiers: Diabetes mellitus assisted insulin use: without assisted use Diabetes mellitus complication status: with hyperglycemia Qualified Code(s): E11.65 - Type 2 diabetes mellitus with hyperglycemia Plan: Patient's type 2 diabetes well controlled with current dose of Actos and metformin. Today's A1c is 6.4. Goal A1c is to remain below 7.0 Orders: Orders AMB Hemoglobin A1c 07/04/23 E11.9 - Type 2 diabetes mellitus without complications Referrals Orthopedics Referral M16.12 - Unilateral primary osteoarthritis, left hip Medications: Changed From tramadol 50 mg PO BID 7 days PRN 14 tabs 0RF pain M16.12 - Unilateral primary osteoarthritis, left hip To tramadol 50 mg PO Q8H 7 days PRN 21 tabs 0RF pain M16.12 - Unilateral primary osteoarthritis, left hip Coding Level of Care Code Est Pt Level 4 (72111) Diagnoses Osteoarthritis of left hip M16.12 Osteoarthritis type: primary HTN (hypertension) I10 Hypertension type: essential hypertension DMII (diabetes mellitus, type 2) E11.65 Diabetes mellitus terminal clerk insulin use: without assisted use Diabetes mellitus complication status: with hyperglycemia
== END 2023-07-05 16:33 | disposition home or self-care (01) ==
PROVIDERS: Visit Provider Physician Assistant
DX: M16.12 Unilateral primary osteoarthritis, left hip (principal); I10 Essential (primary) hypertension; E11.65 Type 2 diabetes mellitus with hyperglycemia; E11.9 Type 2 diabetes mellitus without complications
CPT/HCPCS: 83036; 99214

== ENCOUNTER 2023-07-19 13:23 | Outpatient (REF) | payer OTHER, MEDICARE, SELFPAY | END 2023-07-19 13:24 | disposition home or self-care (01) | LOC: HO.HOSX 13:23 | PROVIDERS: Visit Provider Orthopaedic Surgery | DX: Z13.89 Encounter for screening for other disorder (principal) ==

== ENCOUNTER 2023-10-10 15:26 | Outpatient (AMB) | payer OTHER, MEDICARE, SELFPAY ==
[2023-10-10 15:50] VITALS: BP 120/74; PULSE 70; O2SAT 99; BMI 24.4
--- NOTE | 2023-10-10 15:50 | MHC.PC.OV ---
Vital Signs 10/10/23 15:50 Height 5 ft 8 in Weight 160 lb 8 oz BMI 24.4 BP 120/74 Blood Pressure Location Lt brachial Position Sitting Pulse 70 Pulse Source Pulse Oximeter Pulse Oximetry (%) 99 Oxygen Delivery Method Room Air Intake Visit Reasons: f/u DMIi/ HTN Felt Hanger Required: No Accompanied by: Spouse Allergies celecoxib [From CELEBREX] Allergy (Intermediate, Verified 10/10/23 16:08) SWELLING TETANUS Allergy (Unknown, Verified 10/10/23 16:08) Unknown influenza virus vaccine bivalent Adverse Reaction (Intermediate, Verified 10/10/23 16:08) illness Medication List - Last Reconciled 10/10/23 by Nikolas Stewart PA-C acetaminophen 500 mg PO Q6H PRN 30 days allopurinol 300 mg PO DAILY 90 days blood sugar diagnostic ([employer] Ultra Test strips) As directed blood-glucose meter ([employer] Ultra2 Meter) As directed ibuprofen 800 mg PO TID 30 days lancets ([employer] UltraSoft Lancets) As directed lidocaine 5% 1 patch topical DAILY 30 days losartan 100 mg PO DAILY 90 days metformin 1,000 mg PO BID metoprolol tartrate 50 mg PO BID 90 days pantoprazole 20 mg PO DAILY 30 days pioglitazone (Actos) 30 mg PO DAILY 30 days tramadol 50 mg PO Q8H PRN 7 days Tobacco use date assessed: 12/22/22 Fall risk assessment: No Falls in past year Last assessed Fall Risk: 10/10/23 Dental Screening Dental Screen Date: 10/10/23 Did you have a dental visit in the last 12 months?: Yes Did you have a dental problem in the last 6 months where you did not have access to dental care?: No Was dental information given to patient?: Patient has dentist HPI f/u DMIi/ HTN HPI Details Olman is a 72-year-old male here today for f/u visit.. Patient has a past medical history of hypertension, hyperlipidemia, gout,, diabetes, cervical radicuopathy. ? .. ? HTN:? Patient's blood acceptable today in office. ? Patient has been compliant with his medications. Patient denies any headaches, chest pain, shortness of breath. ? .. ? DMII: .? Patient has started regularly checking his blood sugars and reports normal readings at home. Today's A1c is 6.8 from 6.4 .. Arthritis:? He is followed by program trainer at the arthritic treatment center continues on prednisone 1 mg daily for his advanced arthritis.? . He has followed up with an orthopedic surgeon about his left hip and received a cortisone injection which did not provide him any pain relief. Has underwent a left hip total hip arthroplasty. Doing much better from a pain standpoint. Still has arthritic pains in his knees and shoulders. [facility] Medical History DM type 2 (diabetes mellitus, type 2) On beta radha at home Hyperlipidemia Arthritis HTN (hypertension) Gout Surgical History History of esophagogastroduodenoscopy (EGD) Hx of colonoscopy History of left knee replacement H/O left knee surgery History of hip surgery Family History Father Heart attack Mother Diabetes Heart attack Family/Other Diabetes Social History Housing: House Alcohol intake: current Alcohol intake frequency: a few times a month Patient Tobacco Use Status: Never used Tobacco e-Cigarette/Vaping Use: Never Used Second Hand Smoke Exposure: No service: No Current occupational status: employed Current occupation: [employer] Current occupational exposures/hazards: No Cognitive needs: Yes Hearing needs: No Vision needs: Yes Questionnaire Thrive Questionnaire Date Thrive assessed: 12/22/22 VARSHA-7 AMB Questionnaire VARSHA-7 Date VARSHA - 7 assessed: 12/22/22 Source: Developed by Drs. Agustin Coreas, Amanda Simon, Miles Bush and colleagues, with an educational ellen from [employer].. Review of Systems Const Denies headache(s) Eyes Denies loss of vision ENT Denies vertigo, Denies dizziness, Denies headache(s) and Denies sore throat Card Denies chest pain, Denies leg edema and Denies lightheadedness Resp Denies cough, Denies hemoptysis and Denies wheezing GI Denies abdominal pain, Denies melena, Denies constipation, Denies diarrhea and Denies vomiting Denies dysuria, Denies urinary frequency and Denies urinary urgency Musc Denies arthralgias, Denies joint swelling, Denies numbness and Denies tingling Neuro Denies Abnormal speech present, Denies behavioral changes, Denies vertigo, Denies dizziness, Denies headache(s), Denies loss of vision, Denies memory loss, Denies numbness and Denies tingling Psych Denies anxiety, Denies behavioral changes, Denies depression, Denies memory loss and Denies panic attacks Ramon/Lymph Denies easy bleeding and Denies easy bruising Aller/Immun Denies wheezing Physical exam (Primary Care) Vital Signs: Last Vital Signs Pulse 70 10/10/23 15:50 BP 120/74 10/10/23 15:50 Pulse Ox 99 10/10/23 15:50 Oxygen Delivery Method Room Air 10/10/23 15:50 BMI result Body Mass Index 24.4 Tobacco/Smoking Status: Tobacco use Status Tobacco use date assessed 12/22/22 10/10/23 15:53 Patient Tobacco Use Status Never used Tobacco 10/10/23 15:53 Tobacco use type 03/22/23 15:56 e-Cigarette/Vaping Use Never Used 10/10/23 15:53 Thrive Assessment: Date of Thrive Assessment Date Thrive assessed 12/22/22 10/10/23 15:53 Const General: healthy appearing, no acute distress, alert and awake Nutritional Appearance: well nourished Orientation/consciousness: oriented to person, oriented to place and oriented to time HENMT Ears: TM's normal bilaterally General nose exam: Normal nasal mucous membranes and turbinates present Eyes Conjunctivae: conjunctivae normal Sclerae: sclerae normal Pupils: Equal, round and reactive pupils present Neck Neck: Yes no lymphadenopathy and Yes no JVD Thyroid: Thyroid normal Carotids: no bruits Resp Effort & Inspection: normal respiratory effort and not tachypneic Auscultation: no crackles, no rales, no rhonchi and no wheezes Cardio Rate: regular rate Rhythm: regular rhythm Heart sounds: no murmurs and normal S1 and S2 GI Palpation (GI): Soft to palpation, nontender, no hepatomegaly and no splenomegaly Auscultation: normal bowel sounds Skin General skin exam: no rashes or lesions noted and dry skin Neuro General: oriented to person, oriented to place and oriented to time Cranial nerves: Yes Equal, round and reactive pupils present Speech: No Abnormal speech present Gait exam (Neuro): Normal gait present Motor exam (neuro): no tremor noted Extrem Right upper extremity: full ROM Left upper extremity: full ROM Right lower extremity: full ROM; no edema Left lower extremity: full ROM; no edema Psych Mental Status: mental status grossly normal Speech and movement: Normal speech and movement present Affect: normal affect Attitude: cooperative Thought process: Normal thought process present Results AMB Hemoglobin A1c AMB Hemoglobin A1c 6.8 % Last Edit by TERRI Perez on 10/10/23 16:03 Results Reviewed Results Reviewed: Laboratory Last Values Hgb A1c (Clinic) 6.8 % (4.0-6.0) H 10/10/23 16:02 Assessment and Plan Assessment & Plan (1) Osteoarthritis of left hip: Code(s): M16.12 - Unilateral primary osteoarthritis, left hip Qualifiers: Osteoarthritis type: primary Qualified Code(s): M16.12 - Unilateral primary osteoarthritis, left hip Plan: He is status post left hip arthroplasty. Doing much better and reports sleeping better and has much less pain. Still like to use tramadol on a p.r.n. basis for pain scales of 8-10. Will continue with Tylenol as well. (2) HTN (hypertension): Code(s): I10 - Essential (primary) hypertension Qualifiers: Hypertension type: essential hypertension Qualified Code(s): I10 - Essential (primary) hypertension Plan: Patient's blood pressure acceptable today in office. Will continue his current dose of losartan and metoprolol. Goal blood pressure to be below 40/90 (3) DMII (diabetes mellitus, type 2): Code(s): E11.9 - Type 2 diabetes mellitus without complications Qualifiers: Diabetes mellitus mcc insulin use: without intermediate project manager use Diabetes mellitus complication status: with hyperglycemia Qualified Code(s): E11.65 - Type 2 diabetes mellitus with hyperglycemia Plan: Patient's type 2 diabetes well controlled with current dose of Actos and metformin. Today's A1c is 6.8. Goal A1c is to remain below 7.0 Orders: Orders AMB Hemoglobin A1c Today E11.9 - Type 2 diabetes mellitus without complications Prostate Specific Antigen Scr Today I10 - Essential (primary) hypertension, Z12.5 - Encounter for screening for malignant neoplasm of prostate Complete Blood Count no Diff Today E11.65 - Type 2 diabetes mellitus with hyperglycemia Microalbumin, Random (w Creat) Today I10 - Essential (primary) hypertension Comprehensive [place]. Panel Fast Today E11.65 - Type 2 diabetes mellitus with hyperglycemia Lipid Panel Today E78.2 - Mixed hyperlipidemia Medications: Changed From tramadol 50 mg PO Q8H 7 days PRN 21 tabs 0RF pain M16.12 - Unilateral primary osteoarthritis, left hip To tramadol 50 mg PO BID 7 days PRN 14 tabs 0RF pain M16.12 - Unilateral primary osteoarthritis, left hip Coding Level of Care Code Est Pt Level 4 (15293) Diagnoses Primary osteoarthritis of left hip M16.12 Osteoarthritis type: primary Essential hypertension I10 Hypertension type: essential hypertension Type 2 diabetes mellitus with hyperglycemia, without long-term current use of insulin E11.65 Diabetes mellitus intermediate project manager insulin use: without mcc use Diabetes mellitus complication status: with hyperglycemia
== END 2023-10-10 16:20 | disposition home or self-care (01) ==
PROVIDERS: PCP Physician Assistant; Visit Provider Physician Assistant
DX: M16.12 Unilateral primary osteoarthritis, left hip (principal); I10 Essential (primary) hypertension; E11.65 Type 2 diabetes mellitus with hyperglycemia; E11.9 Type 2 diabetes mellitus without complications
CPT/HCPCS: 83036; 99214

== ENCOUNTER 2024-02-01 06:25 | Outpatient (REF) | payer OTHER, MEDICARE, SELFPAY ==
[2024-02-01 07:32] LABS: Hematocrit 34.3 % (42.0-52.0); Hemoglobin 10.5 g/dl (14.0-18.0); Mean Corpuscular HGB Conc 30.6 g/dl (31.0-36.0); Mean Corpuscular Hemoglobin 22.8 pg (27.0-33.0); Mean Corpuscular Volume 74.4 fL (80.0-98.0); Mean Platelet Volume 10.9 fL (9.4-12.4); Platelet Count 299 X10*3/uL (160-400); Red Blood Count 4.61 X10*6/uL (4.60-5.80); Red Cell Distribution Width 16.6 % (11.0-16.0)
[2024-02-01 07:38] LABS: Alanine Aminotransferase 14 U/L (0-40); Albumin Level 4.2 g/dL (3.5-5.0); Alkaline Phosphatase 62 U/L (39-117); Anion Gap 15 (12-20); Aspartate Amino Transferase 24 U/L (5-37); Bilirubin Total 0.7 mg/dL (0.0-1.0); Blood Urea Nitrogen 18 mg/dL (9-16); Carbon Dioxide 26 mmol/L (22-29); Chloride 106 mmol/L (96-108); Cholesterol 176 mg/dL (<200); Estimated Glomerular Filt Rate > 60; Glucose Fasting 100 mg/dL (60-99); HDL Cholesterol 65 mg/dL (>40); LDL Cholesterol Calculated 99 mg/dL (<100); Potassium 3.6 mmol/L (3.3-5.1); Sodium 143 mmol/L (135-145); Total Protein 7.3 g/dL (6.5-8.0); Triglycerides 62 mg/dL (<150)
[2024-02-01 07:50] LABS: Prostate Specific Antigen Scr 0.74 ng/mL (<0.05-4.0)
[2024-02-01 11:53] LABS: Microalbum/Creatinine Ratio Ur 7.1 ug/mg cr (<30)
== END 2024-02-01 06:26 | disposition home or self-care (01) ==
LOC: HO.LAB 06:25
PROVIDERS: PCP Physician Assistant; Visit Provider Physician Assistant
DX: Z12.5 Encounter for screening for malignant neoplasm of prostate (principal); I10 Essential (primary) hypertension; E11.65 Type 2 diabetes mellitus with hyperglycemia; E78.2 Mixed hyperlipidemia
CPT/HCPCS: 36415; 80053; 80061; 82043; 82570; 84153; 85027

== ENCOUNTER 2024-02-08 15:35 | Outpatient (AMB) | payer OTHER, MEDICARE, SELFPAY ==
[2024-02-08 15:50] VITALS: BP 132/80; PULSE 62; RESP 16; O2SAT 100; BMI 25.2
--- NOTE | 2024-02-08 15:50 | A.OFFPC_ITS ---
Vital Signs 02/08/24 15:50 Height 5 ft 8 in Weight 165 lb 8 oz BMI 25.2 BP 132/80 Blood Pressure Location Lt brachial Position Sitting Respiration 16 Pulse 62 Pulse Source Pulse Oximeter Pulse Oximetry (%) 100 Oxygen Delivery Method Room Air Intake Visit Reasons: PE Intake Note: Patient is here today for a physical. Audiovisual Lead Technician Required: No Accompanied by: Self / Same As Patient Allergies celecoxib [From CELEBREX] Allergy (Intermediate, Verified 02/08/24 16:15) SWELLING TETANUS Allergy (Unknown, Verified 02/08/24 16:15) Unknown influenza virus vaccine bivalent Adverse Reaction (Intermediate, Verified 02/08/24 16:15) illness Medication List - Last Reconciled 02/08/24 by Nikolas Stewart PA-C acetaminophen 500 mg PO Q6H PRN 30 days allopurinol 300 mg PO DAILY 90 days blood sugar diagnostic ([employer] Ultra Test strips) As directed blood-glucose meter ([employer] Ultra2 Meter) As directed ibuprofen 800 mg PO TID 30 days lancets ([employer] UltraSoft Lancets) As directed lidocaine 5% 1 patch topical DAILY 30 days losartan 100 mg PO DAILY 90 days metformin 1,000 mg PO BID metoprolol tartrate 50 mg PO BID 90 days pantoprazole 20 mg PO DAILY 30 days pioglitazone (Actos) 30 mg PO DAILY 30 days tramadol 50 mg PO BID PRN 7 days Tobacco use date assessed: 02/08/24 Fall risk assessment: No Falls in past year Last assessed Fall Risk: 02/08/24 Dental Screening Dental Screen Date: 02/08/24 Did you have a dental visit in the last 12 months?: Yes Did you have a dental problem in the last 6 months where you did not have access to dental care?: No Was dental information given to patient?: Patient has dentist HPI PE HPI Details hattie is a 73-year-old male here today for an annual physical.. Patient has a past medical history of hypertension, hyperlipidemia, gout,, diabetes, cervical radicuopathy. ? .. ? HTN:? Patient's blood acceptable today in office. ? Patient has been compliant with his medications. Patient denies any headaches, chest pain, shortness of breath. ? .. ? DMII: .? Patient has started regularly checking his blood sugars and reports normal readings at home. Most recent A1c acceptable. Will continue him on his current anti-hyperglycemic medications. .. Arthritis:? He is followed by duct cleaner at the arthritic treatment center he is now off of prednisone. He has followed up with an orthopedic surgeon about his left hip and received a cortisone injection which did not provide him any pain relief. Has underwent a left hip total hip arthroplasty. Doing much better from a pain standpoint. Still has arthritic pains in his knees and shoulders. Vaccines:UTD with COVID vacc, PCV, need Td (allergic) , FLu shot. Colon cancer screening: Colonoscopy done in 2020- repeat 5 years Laboratory Tests 09/20/22 11/03/22 05/26/23 15:45 11:06 06:30 RBC 4.65 Hgb Hct 32.8 L Fasting Glucose Hemoglobin A1c % 7.5 Hgb A1c (Clinic) 6.2 H Cholesterol LDL Cholesterol, C alc PSA Screen 05/26/23 05/26/23 07/05/23 06:30 06:30 15:42 RBC 4.16 L Hgb 10.2 L Hct Fasting Glucose Hemoglobin A1c % Hgb A1c (Clinic) 6.4 H Cholesterol 158 LDL Cholesterol, C alc 92 PSA Screen 10/10/23 02/01/24 02/01/24 16:02 06:34 06:34 RBC 4.61 Hgb 10.5 L Hct 34.3 L Fasting Glucose 100 H Hemoglobin A1c % Hgb A1c (Clinic) 6.8 H Cholesterol LDL Cholesterol, C alc 99 PSA Screen 0.74 02/08/24 16:12 RBC Hgb Hct Fasting Glucose Hemoglobin A1c % Hgb A1c (Clinic) 6.7 H Cholesterol LDL Cholesterol, C alc PSA Screen [facility] Medical History DM type 2 (diabetes mellitus, type 2) On beta radha at home Hyperlipidemia Arthritis HTN (hypertension) Gout Surgical History History of esophagogastroduodenoscopy (EGD) Hx of colonoscopy History of left knee replacement H/O left knee surgery History of hip surgery Family History Father Heart attack Mother Diabetes Heart attack Family/Other Diabetes Social History Housing: House Alcohol intake: current Alcohol intake frequency: a few times a month Patient Tobacco Use Status: Never used Tobacco e-Cigarette/Vaping Use: Never Used Second Hand Smoke Exposure: No service: No Current occupational status: employed Current occupation: [employer] Current occupational exposures/hazards: No Cognitive needs: Yes Hearing needs: No Vision needs: Yes Questionnaire PHQ-9 Over the last 2 weeks, how often have you been bothered by any of the following problems? 1. Little interest or pleasure in doing things: not at all 2. Feeling down, depressed, or hopeless: not at all 3. Trouble falling or staying asleep, or sleeping too much: not at all 4. Feeling tired or having little energy: not at all 5. Poor appetite or overeating: not at all 6. Feeling bad about yourself - or that you are a failure or have let yourself or your family down: not at all 7. Trouble concentrating on things, such as reading the newspaper or watching television: not at all 8. Moving or speaking so slowly that other people could have noticed. Or the opposite - being so fidgety or restless that you have been moving around a lot more than usual: not at all 9. Thoughts that you would be better off or of hurting yourself in some way: not at all Total score: 0 Depression Screening Interpretation: Negative Depression Screening Done: Yes 10123 - PHQ-9 Billing: Yes Source: Developed by Drs. Agustin Coreas, Amanda Simon, Miles Bush and colleagues, with an educational ellen from [employer]. Thrive Questionnaire Date Thrive assessed: 02/08/24 I am a: Patient What is your living situation today?: I have a steady place to live Within the past 12 months, did the food you bought not last and you didn't have the money to get more?: Never true Within the past 12 months, did you worry whether your food would run out before you got money to buy more?: Never true Do you have trouble paying for medicines?: No Do you have trouble getting transportation to medical appointments?: No Do you have trouble paying your heating and electricity bill?: No Do you have trouble taking care of your child, family member or friend?: No Do you have trouble with day-to-day activities such as bathing, preparing meals, shopping, managing finances, etc.?: No Are you currently unemployed and looking for a job?: No Are you interested in more education?: No Please select the resources that you would like help with: None Currently or been in a relationship where the following occur: no concerns reported THRIVE Score: 0 AUDIT C Alcohol Use Questionnaire (AUDIT-C) 1. How often do you have a drink containing alcohol?: 2-3 times a week 2. How many drinks containing alcohol do you have on a typical day when you are drinking?: 10 or more (Beers and sometime ) 3. How often do you have six or more drinks on one occasion?: Never Total Score: 7 VARSHA-7 AMB Questionnaire VARSHA-7 Date VARSHA - 7 assessed: 02/08/24 Feeling nervous, anxious, or on edge: 0 = Not at all Not being able to stop or control worryin = Not at all Worrying too much about different things: 0 = Not at all Trouble relaxin = Not at all Being so restless that it is hard to sit still: 0 = Not at all Becoming easily annoyed or irritable: 0 = Not at all Feeling afraid as if something awful might happen: 0 = Not at all Total VARSHA-7 score (0-4 normal; 5-9 mild; 10-14 moderate; 15-21 severe): 0 Source: Developed by Drs. Agustin Coreas, Amanda Simon, Miles Bush and colleagues, with an educational ellen from [employer]. VARSHA-7 Assessment Billing VARSHA-7 Assessment Tool: VARSHA-7 Assessment 41471 Review of Systems Const Denies body aches, Denies chills, Denies excessive sweating, Denies fatigue, Denies fever(s) and Denies headache(s) Eyes Denies blurry vision ENT Denies dysphagia, Denies vertigo, Denies dizziness, Denies headache(s), Denies hearing loss and Denies tinnitus Card Denies chest pain, Denies chest pain with activity, Denies syncope, Denies irregular heart rhythm and Denies dyspnea Resp Denies chest congestion, Denies cough, Denies hemoptysis, Denies dyspnea and Denies wheezing GI Denies abdominal pain, Denies melena, Denies hematochezia, Denies coffee ground emesis, Denies dysphagia, Denies diarrhea, Denies nausea and Denies vomiting Denies difficulty urinating, Denies dysuria, Denies urinary frequency, Denies urinary hesitancy and Denies urinary urgency Musc Denies arthralgias, Denies limited range of motion, Denies muscle cramps and Denies muscle weakness Skin/Breast Denies rash and Denies skin ulcer Neuro Denies Abnormal speech present, Denies confusion, Denies vertigo, Denies dizziness, Denies syncope, Denies headache(s), Denies memory loss and Denies seizure-like activity Psych Denies anxiety, Denies confusion, Denies depression, Denies memory loss, Denies panic attacks and Denies paranoia Endo Denies excessive sweating, Denies fatigue, Denies flushing, Denies polydipsia and Denies polyuria Aller/Immun Denies wheezing Physical exam (Primary Care) Vital Signs: Last Vital Signs Pulse 62 02/08/24 15:50 Resp 16 02/08/24 15:50 BP 132/80 02/08/24 15:50 Pulse Ox 100 02/08/24 15:50 Oxygen Delivery Method Room Air 02/08/24 15:50 BMI result Body Mass Index 25.2 Tobacco/Smoking Status: Tobacco use Status Tobacco use date assessed 02/08/24 02/08/24 15:52 Patient Tobacco Use Status Never used Tobacco 02/08/24 15:52 Tobacco use type 03/22/23 15:56 e-Cigarette/Vaping Use Never Used 02/08/24 15:52 PHQ-9: PHQ-9 Score PHQ-9: Total score 0 02/08/24 16:17 Depression Screening Interpretation: Negative Thrive Assessment: Date of Thrive Assessment Date Thrive assessed 02/08/24 02/08/24 15:52 Currently or been in a relationship where the following occur: no concerns reported Const General: cooperative, comfortable, no acute distress, alert and awake; No confusion Orientation/consciousness: oriented to person, oriented to place, patient oriented x3 and No confusion HENMT Head: Yes normocephalic Ears: external ears normal and TM's normal bilaterally Face and sinus: No sinus tenderness Mouth: Normal oral and palatal mucosa present and tongue normal Teeth and gingiva: dentition normal and gingiva normal Throat: Yes posterior oropharynx normal, Yes tonsils normal and Yes uvula midline Eyes Conjunctivae: conjunctivae normal Sclerae: sclerae normal Pupils: Equal, round and reactive pupils present EOM: EOMs intact bilaterally Direct Ophthalmoscopy: No no photophobia Neck Neck: Yes no lymphadenopathy, No tender and Yes no JVD Thyroid: Thyroid normal Carotids: no bruits Chest Chest palpation & inspection: no tenderness Resp Effort & Inspection: normal respiratory effort, no audible wheezes, not labored and no stridor Auscultation: no crackles, no rales, no rhonchi and no wheezes Cardio Jugular venous distension: no JVD Rate: regular rate, not bradycardic and not tachycardic Rhythm: regular rhythm Bruits: no carotid bruits Peripheral pulses: Peripheral pulses 2+ throughout GI Inspection: Yes normal to inspection, No abdominal wall ecchymosis and No visible herniation Palpation (GI): Soft to palpation, nontender, no guarding, not rigid and No hepatosplenomegaly present Auscultation: normoactive bowel sounds General: Yes no CVA tenderness Back/Spine/Pelvis Back: no CVA tenderness and No back tenderness Cervical Spine: cervical ROM normal Thoracic/Lumbar Spine: thoracic and lumbar spine normal to inspection, straight leg raise negative bilaterally, No thoraco-lumbar ROM limited and No lumbar spinal tenderness Skin Lesions: no lesions Rashes: no rashes Wounds: no wounds Neuro General: oriented to person, oriented to place, patient oriented x3, CN's II-XI intact bilaterally and No confusion Cranial nerves: Yes Equal, round and reactive pupils present and Yes Normal accommodation reflex present Cognition (Neuro): normal cognition Speech: No Abnormal speech present Gait exam (Neuro): Normal gait present Motor exam (neuro): 5/5 motor strength present throughout Extrem Right upper extremity: full ROM; no cyanosis Left upper extremity: full ROM; no cyanosis Right lower extremity: no edema Left lower extremity: no edema Psych Appearance: grossly normal Mental Status: mental status grossly normal Affect: normal affect Attitude: cooperative Thought process: Normal thought process present Results AMB Hemoglobin A1c AMB Hemoglobin A1c 6.7 % Last Edit by TERRI Perez on 02/08/24 16:13 Results Reviewed Results Reviewed: Laboratory Last Values Hgb A1c (Clinic) 6.7 % (4.0-6.0) H 02/08/24 16:12 Assessment and Plan Assessment & Plan (1) Annual physical exam: Code(s): Z00.00 - Encounter for general adult medical examination without abnormal findings (2) HTN (hypertension): Code(s): I10 - Essential (primary) hypertension Qualifiers: Hypertension type: essential hypertension Qualified Code(s): I10 - Essential (primary) hypertension Plan: Patient's blood pressure acceptable today in office. Will continue his current dose of losartan and metoprolol. Goal blood pressure to be below 40/90 (3) DMII (diabetes mellitus, type 2): Code(s): E11.9 - Type 2 diabetes mellitus without complications Qualifiers: Diabetes mellitus complication status: with hyperglycemia Diabetes mellitus marine oil terminal superintendent insulin use: without senior living use Qualified Code(s): E11.65 - Type 2 diabetes mellitus with hyperglycemia Plan: Patient's type 2 diabetes well controlled with current dose of Actos and metformin. Today's A1c is 6.8. Goal A1c is to remain below 7.0 (4) Anemia: Code(s): D64.9 - Anemia, unspecified Qualifiers: Anemia type: iron deficiency Iron deficiency anemia type: unspecified iron deficiency Qualified Code(s): D50.9 - Iron deficiency anemia, unspecified Plan: Patient has a history of anemia likely due to recent surgeries and chronic disease. Will start iron supplementation.. Will continue to follow his CBC and iron studies Orders: Orders Comprehensive [place]. Panel Fast 4 Months I10 - Essential (primary) hypertension AMB Hemoglobin A1c 02/08/24 E11.9 - Type 2 diabetes mellitus without complications IRON PROFILE 4 Months D50.9 - Iron deficiency anemia, unspecified Lipid Panel 4 Months E78.2 - Mixed hyperlipidemia Uric Acid 4 Months M10.9 - Gout, unspecified Hemoglobin A1c 4 Months E11.65 - Type 2 diabetes mellitus with hyperglycemia Medications: New ferrous sulfate 325 mg PO BID 30 days 60 tabs 1RF D50.9 - Iron deficiency anemia, unspecified Coding Level of Care Code Est Pt Prev Care >65y([id number]) Diagnoses Annual physical exam Z00.00 Essential hypertension I10 Hypertension type: essential hypertension Type 2 diabetes mellitus with hyperglycemia, without long-term current use of insulin E11.65 Diabetes mellitus complication status: with hyperglycemia Diabetes mellitus marine oil terminal superintendent insulin use: without senior living use Iron deficiency anemia, unspecified iron deficiency anemia type D50.9 Anemia type: iron deficiency Iron deficiency anemia type: unspecified iron deficiency Additional Codes VARSHA-7 Assessment Billing - VARSHA-7 Assessment Tool: VARSHA-7 Assessment [id number] ([id number])
== END 2024-02-08 16:32 | disposition home or self-care (01) ==
PROVIDERS: PCP Physician Assistant; Visit Provider Physician Assistant
DX: E11.9 Type 2 diabetes mellitus without complications (principal)
CPT/HCPCS: 83036; 99397

== ENCOUNTER 2024-07-19 06:03 | Outpatient (REF) | payer OTHER, MEDICARE, SELFPAY ==
[2024-07-19 07:39] LABS: Alanine Aminotransferase 9 U/L (0-40); Albumin Level 4.1 g/dL (3.5-5.0); Alkaline Phosphatase 60 U/L (39-117); Anion Gap 11 (12-20); Aspartate Amino Transferase 16 U/L (5-37); Bilirubin Total 0.7 mg/dL (0.0-1.0); Blood Urea Nitrogen 16 mg/dL (9-16); Calcium 9.4 mg/dL (8.4-10.2); Carbon Dioxide 29 mmol/L (22-29); Chloride 106 mmol/L (96-108); Cholesterol 160 mg/dL (<200); Estimated Glomerular Filt Rate > 60; Glucose Fasting 88 mg/dL (60-99); HDL Cholesterol 60 mg/dL (>40); Iron 46 mcg/dL (45-160); LDL Cholesterol Calculated 89 mg/dL (<100); Percent Iron Saturation 16 % (15-50); Potassium 3.8 mmol/L (3.3-5.1); Sodium 142 mmol/L (135-145); Total Iron Binding Capacity 296 mcg/dL (228-428); Total Protein 6.9 g/dL (6.5-8.0); Triglycerides 59 mg/dL (<150); Unsaturated Iron Binding 250 ug/dL; Uric Acid 5.6 mg/dL (3.4-7.0)
[2024-07-19 07:56] LABS: Estimated Average Glucose 151 mg/dL; Hemoglobin A1c % 6.9 % (<6.0)
== END 2024-07-19 06:04 | disposition home or self-care (01) ==
LOC: HO.LAB 06:03
PROVIDERS: PCP Physician Assistant; Visit Provider Physician Assistant
DX: M10.9 Gout, unspecified (principal); I10 Essential (primary) hypertension; D50.9 Iron deficiency anemia, unspecified; E78.2 Mixed hyperlipidemia; E11.65 Type 2 diabetes mellitus with hyperglycemia
CPT/HCPCS: 36415; 80053; 80061; 83036; 83540; 84550

== ENCOUNTER 2024-07-31 14:06 | Outpatient (AMB) | payer OTHER, MEDICARE, SELFPAY ==
--- NOTE | 2024-07-31 14:15 | A.OFFPC_ITS ---
Vital Signs 07/31/24 14:16 Height 5 ft 8 in Weight 164 lb 4 oz BMI 25.0 BP 156/80 H Blood Pressure Location Lt brachial Position Sitting Pulse 72 Pulse Source Pulse Oximeter Pulse Oximetry (%) 100 Oxygen Delivery Method Room Air Intake Visit Reasons: Follow-up diabetes Cath Lab Radiology Technician Required: No Accompanied by: Spouse Allergies celecoxib [From CELEBREX] Allergy (Intermediate, Verified 07/31/24 14:24) SWELLING TETANUS Allergy (Unknown, Verified 07/31/24 14:24) Unknown influenza virus vaccine bivalent Adverse Reaction (Intermediate, Verified 07/31/24 14:24) illness Medication List - Last Reconciled 07/31/24 by Nikolas Stewart PA-C acetaminophen 500 mg PO Q6H PRN 30 days allopurinol 300 mg PO DAILY 90 days blood sugar diagnostic (MorphoSysuch Ultra Test strips) As directed blood-glucose meter (MorphoSysuch Ultra2 Meter) As directed ferrous sulfate 325 mg PO BID 30 days ibuprofen 800 mg PO TID 30 days lancets ([employer]Touch UltraSoft Lancets) As directed lidocaine 5% 1 patch topical DAILY 30 days losartan 100 mg PO DAILY 90 days metformin 1,000 mg PO BID metoprolol tartrate 50 mg PO BID 90 days pantoprazole 20 mg PO DAILY 30 days pioglitazone (Actos) 30 mg PO DAILY 30 days tramadol 50 mg PO BID PRN 7 days Tobacco use date assessed: 02/08/24 Fall risk assessment: No Falls in past year Last assessed Fall Risk: 07/31/24 Dental Screening Dental Screen Date: 02/08/24 HPI Follow-up diabetes HPI Details Olman is a 73-year-old male here today for an annual physical.. Patient has a past medical history of hypertension, hyperlipidemia, gout,, diabetes, cervical radicuopathy. ? .. ? HTN:? Patient's blood acceptable today in office. ? Patient has been compliant with his medications. Patient denies any headaches, chest pain, shortness of breath. ? .. ? DMII: .? Patient has started regularly checking his blood sugars and reports normal readings at home. Most recent A1c acceptable. Will continue him on his current anti-hyperglycemic medications. .. Hyperlipidemia: Has been making dietary modifications and most recent lipid panel showing excellent control of his total cholesterol and LDL. .. Arthritis:? He is followed by production foreman at the [facility] he is now off of prednisone. He has followed up with an orthopedic surgeon about his left hip and received a cortisone injection which did not provide him any pain relief. He does use tramadol 50 mg on a p.r.n. basis for arthritic type pain. Laboratory Tests 02/01/24 02/08/24 07/19/24 06:34 16:12 06:13 Hgb 10.5 L Hct 34.3 L Creatinine 1.04 Hgb A1c (Clinic) 6.7 H Hemoglobin A1c % 6.9 H . [facility] Medical History DM type 2 (diabetes mellitus, type 2) On beta radha at home Hyperlipidemia Arthritis HTN (hypertension) Gout Surgical History History of esophagogastroduodenoscopy (EGD) Hx of colonoscopy History of left knee replacement H/O left knee surgery History of hip surgery Family History Father Heart attack Mother Diabetes Heart attack Family/Other Diabetes Social History Housing: House Alcohol intake: current Alcohol intake frequency: a few times a month Patient Tobacco Use Status: Never used Tobacco e-Cigarette/Vaping Use: Never Used Second Hand Smoke Exposure: No service: No Current occupational status: employed Current occupation: [employer] Current occupational exposures/hazards: No Cognitive needs: Yes Hearing needs: No Vision needs: Yes Questionnaire Thrive Questionnaire Date Thrive assessed: 02/08/24 Are you currently unemployed and looking for a job?: No VARSHA-7 AMB Questionnaire VARSHA-7 Date VARSHA - 7 assessed: 02/08/24 Source: Developed by Drs. Agustin Coreas, Amanda Simon, Miles Bush and colleagues, with an educational ellen from [employer]. Review of Systems Const Denies headache(s) Eyes Denies loss of vision ENT Denies vertigo, Denies dizziness, Denies headache(s) and Denies sore throat Card Denies chest pain, Denies leg edema and Denies lightheadedness Resp Denies cough, Denies hemoptysis and Denies wheezing GI Denies abdominal pain, Denies melena, Denies constipation, Denies diarrhea and Denies vomiting Denies dysuria, Denies urinary frequency and Denies urinary urgency Musc Denies arthralgias, Denies joint swelling, Denies numbness and Denies tingling Neuro Denies Abnormal speech present, Denies behavioral changes, Denies vertigo, Denies dizziness, Denies headache(s), Denies loss of vision, Denies memory loss, Denies numbness and Denies tingling Psych Denies anxiety, Denies behavioral changes, Denies depression, Denies memory loss and Denies panic attacks Ramon/Lymph Denies easy bleeding and Denies easy bruising Aller/Immun Denies wheezing Physical exam (Primary Care) Vital Signs: Last Vital Signs Pulse 72 07/31/24 14:16 BP 156/80 H 07/31/24 14:16 Pulse Ox 100 07/31/24 14:16 Oxygen Delivery Method Room Air 07/31/24 14:16 BMI result Body Mass Index 25.0 Tobacco/Smoking Status: Tobacco use Status Tobacco use date assessed 02/08/24 07/31/24 14:20 Patient Tobacco Use Status Never used Tobacco 07/31/24 14:20 Tobacco use type 03/22/23 15:56 e-Cigarette/Vaping Use Never Used 07/31/24 14:20 Thrive Assessment: Date of Thrive Assessment Date Thrive assessed 02/08/24 07/31/24 14:20 Const General: healthy appearing, no acute distress, alert and awake Nutritional Appearance: well nourished Orientation/consciousness: oriented to person, oriented to place and oriented to time HENMT Ears: TM's normal bilaterally General nose exam: Normal nasal mucous membranes and turbinates present Eyes Conjunctivae: conjunctivae normal Sclerae: sclerae normal Pupils: Equal, round and reactive pupils present Neck Neck: Yes no lymphadenopathy and Yes no JVD Thyroid: Thyroid normal Carotids: no bruits Resp Effort & Inspection: normal respiratory effort and not tachypneic Auscultation: no crackles, no rales, no rhonchi and no wheezes Cardio Rate: regular rate Rhythm: regular rhythm Heart sounds: no murmurs and normal S1 and S2 GI Palpation (GI): Soft to palpation, nontender, no hepatomegaly and no splenomegaly Auscultation: normal bowel sounds Skin General skin exam: no rashes or lesions noted and dry skin Neuro General: oriented to person, oriented to place and oriented to time Cranial nerves: Yes Equal, round and reactive pupils present Speech: No Abnormal speech present Gait exam (Neuro): Normal gait present Motor exam (neuro): no tremor noted Extrem Right upper extremity: full ROM Left upper extremity: full ROM Right lower extremity: full ROM; no edema Left lower extremity: full ROM; no edema Psych Mental Status: mental status grossly normal Speech and movement: Normal speech and movement present Affect: normal affect Attitude: cooperative Thought process: Normal thought process present Assessment and Plan Assessment & Plan (1) HTN (hypertension): Code(s): I10 - Essential (primary) hypertension Qualifiers: Hypertension type: essential hypertension Qualified Code(s): I10 - Essential (primary) hypertension Plan: Patient's blood pressure acceptable today in office. Will continue his current dose of losartan and metoprolol. Goal blood pressure to be below 40/90 (2) DMII (diabetes mellitus, type 2): Code(s): E11.9 - Type 2 diabetes mellitus without complications Qualifiers: Diabetes mellitus complication status: with hyperglycemia Diabetes mellitus [facility] insulin use: without [facility] use Qualified Code(s): E11.65 - Type 2 diabetes mellitus with hyperglycemia Plan: Patient's type 2 diabetes well controlled with current dose of Actos and metformin. Most recent A1c is 6.9. Goal A1c is to remain below 7.0 (3) Gout: Code(s): M10.9 - Gout, unspecified Qualifiers: Gout site: foot Gout etiology: idiopathic Chronicity: chronic Presence of tophus: without tophus Plan: Patient has a history of gout, has been fairly well controlled. Does use allopurinol from time to time. Did explain to patient that allopurinol should be a chronic daily medication. Orders: Orders Lipid Panel 07/31/24 E78.2 - Mixed hyperlipidemia Comprehensive [place]. Panel Fast 07/31/2465 - Type 2 diabetes mellitus with hyperglycemia Uric Acid 07/31/24 M10.9 - Gout, unspecified Hemoglobin A1c 07/31/2465 - Type 2 diabetes mellitus with hyperglycemia Complete Blood Count no Diff 07/31/24 - Type 2 diabetes mellitus with hyperglycemia Microalbumin, Random (w Creat) 07/31/24 I10 - Essential (primary) hypertension Prostate Specific Antigen Scr 07/31/24 I10 - Essential (primary) hypertension, Z12.5 - Encounter for screening for malignant neoplasm of prostate Medications: Refilled losartan 100 mg PO DAILY 90 caps 2RF 90 days I10 - Essential (primary) hypertension metoprolol tartrate 50 mg PO BID 180 tabs 2RF 90 days I49.3 - Ventricular premature depolarization tramadol 50 mg PO BID PRN 14 tabs 0RF pain 7 days M16.12 - Unilateral primary osteoarthritis, left hip allopurinol 300 mg PO DAILY 90 tabs 1RF 90 days M10.9 - Gout, unspecified Patient Instructions: Goal: A1c to remain below 7.0, LDL to remain below 100 Barriers: Adherence to physical activity and healthy eating habits Coding Level of Care Code Est Pt Level 4 (09526) Diagnoses Essential hypertension I10 Hypertension type: essential hypertension Type 2 diabetes mellitus with hyperglycemia, without long-term current use of insulin E11.65 Diabetes mellitus complication status: with hyperglycemia Diabetes mellitus [facility] insulin use: without [facility] use Gout M10.9 Gout site: foot Gout etiology: idiopathic Chronicity: chronic Presence of tophus: without tophus
[2024-07-31 14:16] VITALS: BP 156/80; PULSE 72; O2SAT 100; BMI 25.0
== END 2024-07-31 14:37 | disposition home or self-care (01) ==
PROVIDERS: PCP Physician Assistant; Visit Provider Physician Assistant
DX: I10 Essential (primary) hypertension (principal); E11.65 Type 2 diabetes mellitus with hyperglycemia; M10.9 Gout, unspecified

== ENCOUNTER → 2024-07-31 14:06 | Outpatient (BNVA) | payer OTHER, MEDICARE, SELFPAY | PROVIDERS: PCP Physician Assistant; Visit Provider Physician Assistant | DX: E11.65 Type 2 diabetes mellitus with hyperglycemia (principal); I10 Essential (primary) hypertension; M1A.0790 Idiopathic chronic gout, unspecified ankle and foot, without tophus (tophi); Z79.899 Other long term (current) drug therapy ==

== ENCOUNTER 2025-01-31 06:00 | Outpatient (REF) | payer OTHER, MEDICARE, SELFPAY ==
[2025-01-31 07:21] LABS: Hemoglobin 10.1 g/dl (14.0-18.0); Mean Corpuscular HGB Conc 31.6 g/dl (31.0-36.0); Mean Corpuscular Hemoglobin 23.7 pg (27.0-33.0); Mean Corpuscular Volume 75.1 fL (80.0-98.0); Mean Platelet Volume 10.5 fL (9.4-12.4); Platelet Count 248 X10*3/uL (160-400); Red Blood Count 4.26 X10*6/uL (4.60-5.80); White Blood Count 7.8 X10*3/uL (4.8-10.8)
[2025-01-31 07:28] LABS: Estimated Average Glucose 151 mg/dL; Hemoglobin A1C 138.8238 umol/L; Hemoglobin A1c % 6.9 % (<6.0)
[2025-01-31 07:46] LABS: Alanine Aminotransferase 13 U/L (0-40); Albumin Level 4.3 g/dL (3.5-5.0); Alkaline Phosphatase 58 U/L (39-117); Anion Gap 11 (12-20); Aspartate Amino Transferase 19 U/L (5-37); Bilirubin Total 0.4 mg/dL (0.0-1.0); Blood Urea Nitrogen 23 mg/dL (9-16); Calcium 9.4 mg/dL (8.4-10.2); Carbon Dioxide 26 mmol/L (22-29); Chloride 108 mmol/L (96-108); Cholesterol 171 mg/dL (<200); Estimated Glomerular Filt Rate > 60; Glucose Fasting 127 mg/dL (60-99); HDL Cholesterol 63 mg/dL (>40); LDL Cholesterol Calculated 91 mg/dL (<100); Sodium 141 mmol/L (135-145); Total Protein 7.5 g/dL (6.5-8.0); Triglycerides 86 mg/dL (<150); Uric Acid 6.6 mg/dL (3.4-7.0)
[2025-01-31 08:03] LABS: Prostate Specific Antigen Scr 0.85 ng/mL (<0.05-4.0)
[2025-01-31 08:30] LABS: Microalbum/Creatinine Ratio Ur 5.3 ug/mg cr (<30)
== END 2025-01-31 06:01 | disposition home or self-care (01) ==
LOC: HO.LAB 06:00
PROVIDERS: PCP Physician Assistant; Visit Provider Physician Assistant
DX: E11.65 Type 2 diabetes mellitus with hyperglycemia (principal); I10 Essential (primary) hypertension; E78.2 Mixed hyperlipidemia; M10.9 Gout, unspecified; Z12.5 Encounter for screening for malignant neoplasm of prostate
CPT/HCPCS: 36415; 80053; 80061; 82043; 82570; 83036; 84153; 84550; 85027

== ENCOUNTER 2025-02-11 13:24 | Outpatient (AMB) | payer OTHER, MEDICARE, SELFPAY ==
--- NOTE | 2025-02-11 13:32 | A.OFFPC_ITS ---
Vital Signs 02/11/25 13:41 Height 5 ft 8 in Weight 163 lb BMI 24.8 BP 120/82 Blood Pressure Location Lt brachial Position Sitting Pulse 68 Pulse Source Pulse Oximeter Temp 97.3 F Temp Source Temporal Artery Scan Pulse Oximetry (%) 98 Oxygen Delivery Method Room Air Intake Visit Reasons: Annual Exam Workers Compensation Manager Required: No Accompanied by: Self / Same As Patient Allergies celecoxib [From CELEBREX] Allergy (Intermediate, Verified 02/11/25 13:43) SWELLING TETANUS Allergy (Unknown, Verified 02/11/25 13:43) Unknown influenza virus vaccine bivalent Adverse Reaction (Intermediate, Verified 02/11/25 13:43) illness Medication List - Last Reconciled 02/11/25 by Nikolas Stewart PA-C acetaminophen 500 mg PO Q6H PRN 30 days allopurinol 300 mg PO DAILY 90 days blood sugar diagnostic ([facility] Ultra Test strips) As directed blood-glucose meter ([facility] Ultra2 Meter) As directed ferrous sulfate 325 mg PO BID 30 days ibuprofen 800 mg PO TID 30 days lancets ([facility] UltraSoft Lancets) As directed lidocaine 5% 1 patch topical DAILY 30 days losartan 100 mg PO DAILY 90 days metformin 1,000 mg PO BID metoprolol tartrate 50 mg PO BID 90 days pantoprazole 20 mg PO DAILY 30 days pioglitazone (Actos) 30 mg PO DAILY 30 days tramadol 50 mg PO BID PRN 7 days Tobacco use date assessed: 02/11/25 Fall risk assessment: No Falls in past year Last assessed Fall Risk: 02/11/25 Dental Screening Dental Screen Date: 02/11/25 Did you have a dental visit in the last 12 months?: Yes Did you have a dental problem in the last 6 months where you did not have access to dental care?: No Was dental information given to patient?: Patient has dentist HPI Annual Exam HPI Details Olman is a 74-year-old male here today for an annual physical.. Patient has a past medical history of hypertension, hyperlipidemia, gout,, diabetes, cervical radicuopathy. ? .. ? HTN:? Patient's blood acceptable today in office. ? Patient has been compliant with his medications. Patient denies any headaches, chest pain, shortness of breath. ? .. ? DMII: .? Patient has started regularly checking his blood sugars and reports normal readings at home. Most recent A1c acceptable at 6.9. Will continue him on his current anti-hyperglycemic medications. .. Hyperlipidemia: Has been making dietary modifications and most recent lipid panel showing excellent control of his total cholesterol and LDL. .. Arthritis:? He is followed by mold capper helper at the arthritic treatment center he is now off of prednisone. Patient continues to have cervical spine pain has worsened over last few months. Does use tramadol from time to time which is effective on reducing his pain though does not make him have insomnia. Vaccines:UTD with COVID vacc, PCV, need Td (allergic) , FLu shot. Colon cancer screening: Colonoscopy done in 2020- repeat 5 years Laboratory Tests 02/01/24 07/19/24 01/31/25 06:34 06:13 06:11 Hgb 10.5 L Creatinine Fasting Glucose Hemoglobin A1c % 6.9 H LDL Cholesterol, C alc 89 PSA Screen Urine Microalbumin 7.0 01/31/25 06:15 Hgb 10.1 L Creatinine 1.09 Fasting Glucose 127 H Hemoglobin A1c % 6.9 H LDL Cholesterol, C alc 91 PSA Screen 0.85 Urine Microalbumin [facility] Medical History DM type 2 (diabetes mellitus, type 2) On beta radha at home Hyperlipidemia Arthritis HTN (hypertension) Gout Surgical History History of esophagogastroduodenoscopy (EGD) Hx of colonoscopy History of left knee replacement H/O left knee surgery History of hip surgery Family History Father Heart attack Mother Diabetes Heart attack Family/Other Diabetes Social History Housing: House Alcohol intake: current Alcohol intake frequency: a few times a month Patient Tobacco Use Status: Never used Tobacco e-Cigarette/Vaping Use: Never Used Second Hand Smoke Exposure: No service: No Current occupational status: employed Current occupation: [employer] Current occupational exposures/hazards: No Cognitive needs: Yes Hearing needs: No Vision needs: Yes Questionnaire PHQ-9 Over the last 2 weeks, how often have you been bothered by any of the following problems? 1. Little interest or pleasure in doing things: several days 2. Feeling down, depressed, or hopeless: several days 3. Trouble falling or staying asleep, or sleeping too much: several days 4. Feeling tired or having little energy: not at all 5. Poor appetite or overeating: not at all 6. Feeling bad about yourself - or that you are a failure or have let yourself or your family down: not at all 7. Trouble concentrating on things, such as reading the newspaper or watching television: not at all 8. Moving or speaking so slowly that other people could have noticed. Or the opposite - being so fidgety or restless that you have been moving around a lot more than usual: not at all 9. Thoughts that you would be better off or of hurting yourself in some way: not at all Total score: 3 Depression Screening Interpretation: Positive Depression Screening Follow-up: Existing condition Depression Screening Done: Yes 32359 - PHQ-9 Billing: Yes Source: Developed by Drs. Agustin Coreas, Amanda Simon, Miles Bush and colleagues, with an educational ellen from [employer]. Thrive Questionnaire Date Thrive assessed: 02/08/24 I am a: Patient What is your living situation today?: I have a steady place to live Within the past 12 months, did the food you bought not last and you didn't have the money to get more?: Never true Within the past 12 months, did you worry whether your food would run out before you got money to buy more?: Never true Do you have trouble paying for medicines?: No Do you have trouble getting transportation to medical appointments?: No Do you have trouble paying your heating and electricity bill?: No Do you have trouble taking care of your child, family member or friend?: No Do you have trouble with day-to-day activities such as bathing, preparing meals, shopping, managing finances, etc.?: No Are you currently unemployed and looking for a job?: No Are you interested in more education?: No Please select the resources that you would like help with: None Currently or been in a relationship where the following occur: No concerns reported THRIVE Score: 0 AUDIT C Alcohol Use Questionnaire (AUDIT-C) 1. How often do you have a drink containing alcohol?: 2-4 times a month 2. How many drinks containing alcohol do you have on a typical day when you are drinking?: 7 to 9 3. How often do you have six or more drinks on one occasion?: Monthly Total Score: 7 VARSHA-7 AMB Questionnaire VARSHA-7 Date VARSHA - 7 assessed: 02/08/24 Feeling nervous, anxious, or on edge: 0 = Not at all Not being able to stop or control worryin = Not at all Worrying too much about different things: 0 = Not at all Trouble relaxin = Not at all Being so restless that it is hard to sit still: 0 = Not at all Becoming easily annoyed or irritable: 0 = Not at all Feeling afraid as if something awful might happen: 0 = Not at all Total VARSHA-7 score (0-4 normal; 5-9 mild; 10-14 moderate; 15-21 severe): 0 Source: Developed by Drs. Agustin Coreas, Amanda Simon, Miles Bush and colleagues, with an educational ellen from [employer]. VARSHA-7 Assessment Billing VARSHA-7 Assessment Tool: VARSHA-7 Assessment 54386 Review of Systems Const Denies body aches, Denies chills, Denies excessive sweating, Denies fatigue, Denies fever(s) and Denies headache(s) Eyes Denies blurry vision ENT Denies dysphagia, Denies vertigo, Denies dizziness, Denies headache(s), Denies hearing loss and Denies tinnitus Card Denies chest pain, Denies chest pain with activity, Denies syncope, Denies irregular heart rhythm and Denies dyspnea Resp Denies chest congestion, Denies cough, Denies hemoptysis, Denies dyspnea and Denies wheezing GI Denies abdominal pain, Denies melena, Denies hematochezia, Denies coffee ground emesis, Denies dysphagia, Denies diarrhea, Denies nausea and Denies vomiting Denies difficulty urinating, Denies dysuria, Denies urinary frequency, Denies urinary hesitancy and Denies urinary urgency Musc Denies arthralgias, Denies limited range of motion, Denies muscle cramps and Denies muscle weakness Skin/Breast Denies rash and Denies skin ulcer Neuro Denies Abnormal speech present, Denies confusion, Denies vertigo, Denies dizziness, Denies syncope, Denies headache(s), Denies memory loss and Denies seizure-like activity Psych Denies anxiety, Denies confusion, Denies depression, Denies memory loss, Denies panic attacks and Denies paranoia Endo Denies excessive sweating, Denies fatigue, Denies flushing, Denies polydipsia and Denies polyuria Aller/Immun Denies wheezing Physical exam (Primary Care) Vital Signs: Last Vital Signs Temp 97.3 F 02/11/25 13:41 Pulse 68 02/11/25 13:41 BP 120/82 02/11/25 13:41 Pulse Ox 98 02/11/25 13:41 Oxygen Delivery Method Room Air 02/11/25 13:41 BMI result Body Mass Index 24.8 Tobacco/Smoking Status: Tobacco use Status Tobacco use date assessed 02/11/25 02/11/25 13:43 Patient Tobacco Use Status Never used Tobacco 02/11/25 13:32 Tobacco use type 03/22/23 15:56 e-Cigarette/Vaping Use Never Used 02/11/25 13:32 PHQ-9: PHQ-9 Score PHQ-9: Total score 3 02/11/25 14:06 Depression Screening Interpretation: Positive Depression Screening Follow-up: Existing condition Thrive Assessment: Date of Thrive Assessment Date Thrive assessed 02/08/24 02/11/25 13:32 Currently or been in a relationship where the following occur: No concerns reported Const General: cooperative, comfortable, no acute distress, alert and awake; No confusion Orientation/consciousness: oriented to person, oriented to place, patient oriented x3 and No confusion HENMT Head: Yes normocephalic Ears: external ears normal and TM's normal bilaterally Face and sinus: No sinus tenderness Mouth: Normal oral and palatal mucosa present and tongue normal Teeth and gingiva: dentition normal and gingiva normal Throat: Yes posterior oropharynx normal, Yes tonsils normal and Yes uvula midline Eyes Conjunctivae: conjunctivae normal Sclerae: sclerae normal Pupils: Equal, round and reactive pupils present EOM: EOMs intact bilaterally Direct Ophthalmoscopy: No no photophobia Neck Neck: Yes no lymphadenopathy, No tender and Yes no JVD Thyroid: Thyroid normal Carotids: no bruits Chest Chest palpation & inspection: no tenderness Resp Effort & Inspection: normal respiratory effort, no audible wheezes, not labored and no stridor Auscultation: no crackles, no rales, no rhonchi and no wheezes Cardio Jugular venous distension: no JVD Rate: regular rate, not bradycardic and not tachycardic Rhythm: regular rhythm Bruits: no carotid bruits Peripheral pulses: Peripheral pulses 2+ throughout GI Inspection: Yes normal to inspection, No abdominal wall ecchymosis and No visible herniation Palpation (GI): Soft to palpation, nontender, no guarding, not rigid and No hepatosplenomegaly present Auscultation: normoactive bowel sounds General: Yes no CVA tenderness Back/Spine/Pelvis Back: no CVA tenderness and No back tenderness Cervical Spine: cervical ROM normal Thoracic/Lumbar Spine: thoracic and lumbar spine normal to inspection, straight leg raise negative bilaterally, No thoraco-lumbar ROM limited and No lumbar spinal tenderness Skin Lesions: no lesions Rashes: no rashes Wounds: no wounds Neuro General: oriented to person, oriented to place, patient oriented x3, CN's II-XI intact bilaterally and No confusion Cranial nerves: Yes Equal, round and reactive pupils present and Yes Normal accommodation reflex present Cognition (Neuro): normal cognition Speech: No Abnormal speech present Gait exam (Neuro): Normal gait present Motor exam (neuro): 5/5 motor strength present throughout Extrem Right upper extremity: full ROM; no cyanosis Left upper extremity: full ROM; no cyanosis Right lower extremity: no edema Left lower extremity: no edema Psych Appearance: grossly normal Mental Status: mental status grossly normal Affect: normal affect Attitude: cooperative Thought process: Normal thought process present Coding Level of Care Code Est Pt Prev Care >65y(80927) Diagnoses Annual physical exam Z00.00 Iron deficiency anemia, unspecified iron deficiency anemia type D50.9 Anemia type: iron deficiency Iron deficiency anemia type: unspecified iron deficiency Type 2 diabetes mellitus with hyperglycemia, without long-term current use of in sulin E11.65 Diabetes mellitus complication status: with hyperglycemia Diabetes mellitus termite inspector insulin use: without detention use Cervical stenosis of spine M48.02 Additional Codes VARSHA-7 Assessment Billing - VARSHA-7 Assessment Tool: VARSHA-7 Assessment [id number] ([id number]) PHQ-9 - 52275 - PHQ-9 Billing: Yes ([id number]) Assessment & Plan Assessment & Plan (1) Annual physical exam: Code(s): Z00.00 - Encounter for general adult medical examination without abnormal findings Category: Medical Plan: As per HPI (2) Anemia: Code(s): D64.9 - Anemia, unspecified Category: Medical Qualifiers: Anemia type: iron deficiency Iron deficiency anemia type: unspecified iron deficiency Qualified Code(s): D50.9 - Iron deficiency anemia, unspecified Plan: Noted to have microcytic anemia. Will check an iron. Advised on starting iron supplementation and he agrees. Will recheck CBC and iron studies. (3) DMII (diabetes mellitus, type 2): Code(s): E11.9 - Type 2 diabetes mellitus without complications Category: Medical Qualifiers: Diabetes mellitus complication status: with hyperglycemia Diabetes mellitus termite inspector insulin use: without termite inspector use Qualified Code(s): E11.65 - Type 2 diabetes mellitus with hyperglycemia Plan: Patient's type 2 diabetes well controlled. Most recent A1c is 6.9. Will continue current antihyperglycemic medication regime with goal A1c to remain below 7.0 (4) Cervical stenosis of spine: Code(s): M48.02 - Spinal stenosis, cervical region Category: Medical Plan: As per HPI patient has a history of cervical spine fracture due to a fall. He does report some increased neck pain over last few months. Does use tramadol from time to time with decent affect. He is willing to try baclofen on a p.r.n. basis to help reduce strain and pain in his paraspinous musculature. He is not willing to do physical therapy again. Orders: Orders Comprehensive [place]. Panel Fast Today E11.65 - Type 2 diabetes mellitus with hyperglycemia Complete Blood Count no Diff Today E11.65 - Type 2 diabetes mellitus with hyperglycemia IRON PROFILE Today D50.9 - Iron deficiency anemia, unspecified Complete Blood Count Auto Diff Today D50.9 - Iron deficiency anemia, unspecified Lipid Panel Today E78.2 - Mixed hyperlipidemia Medications: New baclofen 10 mg PO BID 14 tabs 0RF 7 days M48.02 - Spinal stenosis, cervical region Refilled lidocaine 5% leave on most painful area for up to 12 hrs 1 patch topical DAILY 30 ea 3RF 30 days M16.12 - Unilateral primary osteoarthritis, left hip pantoprazole 20 mg PO DAILY 30 tabs 1RF 30 days K21.9 - Gastro-esophageal reflux disease without esophagitis losartan 100 mg PO DAILY 90 caps 2RF 90 days I10 - Essential (primary) hypertension ferrous sulfate 325 mg PO BID 60 tabs 1RF 30 days D50.9 - Iron deficiency ane deniz, unspecified Patient Instructions: Goal: A1c to remain below 7.0, LDL to be below 100 Barriers: Adherence to physical activity and healthy eating habits.
[2025-02-11 13:41] VITALS: BP 120/82; PULSE 68; TEMP 36.3; O2SAT 98; BMI 24.8
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
== END 2025-02-11 14:06 | disposition home or self-care (01) ==
LOC: HO.HMCH 13:25
PROVIDERS: PCP Physician Assistant; Visit Provider Physician Assistant
DX: Z00.00 Encounter for general adult medical examination without abnormal findings (principal); D50.9 Iron deficiency anemia, unspecified; E11.65 Type 2 diabetes mellitus with hyperglycemia; M48.02 Spinal stenosis, cervical region

== ENCOUNTER → 2025-02-11 13:24 | Outpatient (BNVA) | payer OTHER, MEDICARE, SELFPAY | PROVIDERS: PCP Physician Assistant; Visit Provider Physician Assistant | DX: Z00.00 Encounter for general adult medical examination without abnormal findings (principal); D50.9 Iron deficiency anemia, unspecified; E11.65 Type 2 diabetes mellitus with hyperglycemia; M48.02 Spinal stenosis, cervical region; I10 Essential (primary) hypertension; K21.9 Gastro-esophageal reflux disease without esophagitis | CPT/HCPCS: 96127 ==

== ENCOUNTER 2025-08-13 13:41 | Outpatient (AMB) | payer OTHER, MEDICARE, SELFPAY ==
[2025-08-13 13:48] VITALS: BP 152/60; PULSE 79; RESP 18; TEMP 36.2; O2SAT 99; BMI 25.1
--- NOTE | 2025-08-13 13:48 | A.OFFPC_ITS ---
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 Accompanied by: Self / Same As Patient Allergies celecoxib (From CELEBREX) Allergy (Intermediate, Verified 08/13/25 14:02) SWELLING TETANUS Allergy (Unknown, Verified 08/13/25 14:02) Unknown influenza virus vaccine bivalent Adverse Reaction (Intermediate, Verified 08/13/25 14:02) illness Medication List - Last Reconciled 08/13/25 by Nikolas Stewart PA-C allopurinol 300 mg PO DAILY 90 days baclofen 10 mg PO BID 7 days blood sugar diagnostic ([employer] Ultra Test strips) As directed blood-glucose meter ([employer] Ultra2 Meter) As directed ferrous sulfate 325 mg PO BID 30 days ibuprofen 800 mg PO TID 30 days lancets ([employer] UltraSoft Lancets) As directed lidocaine 5% 1 patch topical DAILY 30 days losartan 100 mg PO DAILY 90 days losartan 100 mg PO DAILY 90 days metformin 1,000 mg PO BID metoprolol tartrate 50 mg PO BID 90 days metoprolol tartrate 50 mg PO BID 90 days pantoprazole 20 mg PO DAILY 30 days tramadol 50 mg PO BID PRN 7 days Tobacco use date assessed: 08/13/25 Fall risk assessment: No Falls in past year Last assessed Fall Risk: 08/13/25 Dental Screening Dental Screen Date: 08/13/25 Did you have a dental visit in the last 12 months?: Yes Did you have a dental problem in the last 6 months where you did not have access to dental care?: No Was dental information given to patient?: Patient has dentist HPI f/u HPI Details Olman is a 74-year-old male here today for a follow up. Patient has a past medical history of hypertension, hyperlipidemia, gout,, diabetes, cervical radicuopathy. ? .. ? HTN:? Blood pressure elevated today in office, has been using NSAID lately due to his neck pain which is likely the reason for his elevation in his blood pressure. ? Patient has been compliant with his medications. Patient denies any headaches, chest pain, shortness of breath. ? .. ? DMII: .? Patient has started regularly checking his blood sugars and reports normal readings at home. Most recent A1c acceptable at 6.9. Will continue him on his current anti-hyperglycemic medications. .. Hyperlipidemia: Has been making dietary modifications and most recent lipid panel showing excellent control of his total cholesterol and LDL. .. A cervical spine arthritis: He has a history of cervical spine disorder, which causes neck pain and occasionally radiates to his head. He uses tramadol and ibuprofen for pain management, although he is advised to reduce ibuprofen due to its potential to elevate blood pressure. [facility] Medical History DM type 2 (diabetes mellitus, type 2) On beta radha at home Hyperlipidemia Arthritis HTN (hypertension) Gout Surgical History History of esophagogastroduodenoscopy (EGD) Hx of colonoscopy History of left knee replacement H/O left knee surgery History of hip surgery Family History Father Heart attack Mother Diabetes Heart attack Family/Other Diabetes Social History Housing: House Alcohol intake: current Alcohol intake frequency: a few times a month Patient Tobacco Use Status: Never used Tobacco e-Cigarette/Vaping Use: Never Used Second Hand Smoke Exposure: No service: No Current occupational status: employed Current occupation: [employer] Current occupational exposures/hazards: No Cognitive needs: Yes Hearing needs: No Vision needs: Yes Questionnaire Thrive Questionnaire Date Thrive assessed: 02/11/25 I am a: Patient What is your living situation today?: I have a steady place to live Within the past 12 months, did the food you bought not last and you didn't have the money to get more?: Never true Within the past 12 months, did you worry whether your food would run out before you got money to buy more?: Never true Do you have trouble paying for medicines?: No Do you have trouble getting transportation to medical appointments?: No Do you have trouble paying your heating and electricity bill?: No Do you have trouble taking care of your child, family member or friend?: No Do you have trouble with day-to-day activities such as bathing, preparing meals, shopping, managing finances, etc.?: No Are you currently unemployed and looking for a job?: No Are you interested in more education?: No Please select the resources that you would like help with: None Currently or been in a relationship where the following occur: No concerns reported THRIVE Score: 0 VARSHA-7 AMB Questionnaire VARSHA-7 Date VARSHA - 7 assessed: 02/08/24 Source: Developed by Drs. Agustin Coreas, Amanda Simon, Miles Bush and colleagues, with an educational ellen from [employer]. Review of Systems Const Denies headache(s) Eyes Denies loss of vision ENT Denies vertigo, Denies dizziness, Denies headache(s) and Denies sore throat Card Denies chest pain, Denies leg edema and Denies lightheadedness Resp Denies cough, Denies hemoptysis and Denies wheezing GI Denies abdominal pain, Denies melena, Denies constipation, Denies diarrhea and Denies vomiting Denies dysuria, Denies urinary frequency and Denies urinary urgency Musc Denies arthralgias, Denies joint swelling, Denies numbness and Denies tingling Neuro Denies Abnormal speech present, Denies behavioral changes, Denies vertigo, Denies dizziness, Denies headache(s), Denies loss of vision, Denies memory loss, Denies numbness and Denies tingling Psych Denies anxiety, Denies behavioral changes, Denies depression, Denies memory loss and Denies panic attacks Ramon/Lymph Denies easy bleeding and Denies easy bruising Aller/Immun Denies wheezing Physical exam (Primary Care) Vital Signs: Last Vital Signs Temp 97.1 F 08/13/25 13:48 Pulse 79 08/13/25 13:48 Resp 18 08/13/25 13:48 BP 152/60 H 08/13/25 13:48 Pulse Ox 99 08/13/25 13:48 Oxygen Delivery Method Room Air 08/13/25 13:48 BMI result Body Mass Index 25.1 Tobacco/Smoking Status: Tobacco use Status Tobacco use date assessed 08/13/25 08/13/25 13:56 Patient Tobacco Use Status Never used Tobacco 08/13/25 13:56 Tobacco use type 03/22/23 15:56 e-Cigarette/Vaping Use Never Used 08/13/25 13:56 Thrive Assessment: Date of Thrive Assessment Date Thrive assessed 02/11/25 08/13/25 13:56 Currently or been in a relationship where the following occur: No concerns reported Const General: healthy appearing, no acute distress, alert and awake Nutritional Appearance: well nourished Orientation/consciousness: oriented to person, oriented to place and oriented to time HENMT Ears: TM's normal bilaterally General nose exam: Normal nasal mucous membranes and turbinates present Eyes Conjunctivae: conjunctivae normal Sclerae: sclerae normal Pupils: Equal, round and reactive pupils present Neck Neck: Yes no lymphadenopathy and Yes no JVD Thyroid: Thyroid normal Carotids: no bruits Resp Effort & Inspection: normal respiratory effort and not tachypneic Auscultation: no crackles, no rales, no rhonchi and no wheezes Cardio Rate: regular rate Rhythm: regular rhythm Heart sounds: no murmurs and normal S1 and S2 GI Palpation (GI): Soft to palpation, nontender, no hepatomegaly and no splenomegaly Auscultation: normal bowel sounds Skin General skin exam: no rashes or lesions noted and dry skin Neuro General: oriented to person, oriented to place and oriented to time Cranial nerves: Yes Equal, round and reactive pupils present Speech: No Abnormal speech present Gait exam (Neuro): Normal gait present Motor exam (neuro): no tremor noted Extrem Right upper extremity: full ROM Left upper extremity: full ROM Right lower extremity: full ROM; no edema Left lower extremity: full ROM; no edema Psych Mental Status: mental status grossly normal Speech and movement: Normal speech and movement present Affect: normal affect Attitude: cooperative Thought process: Normal thought process present Coding Level of Care Code Est Pt Level 4 (54238) Diagnoses Iron deficiency anemia, unspecified iron deficiency anemia type D50.9 Anemia type: iron deficiency Iron deficiency anemia type: unspecified iron deficiency Type 2 diabetes mellitus with hyperglycemia, without long-term current use of insulin E11.65 Diabetes mellitus residential insulin use: without residential use Diabetes mellitus complication status: with hyperglycemia Cervical stenosis of spine M48.02 Essential hypertension I10 Hypertension type: essential hypertension Assessment & Plan Assessment & Plan (1) Anemia: Code(s): D64.9 - Anemia, unspecified Category: Medical Qualifiers: Anemia type: iron deficiency Iron deficiency anemia type: unspecified iron deficiency Qualified Code(s): D50.9 - Iron deficiency anemia, unspecified Plan: Noted to have microcytic anemia. Will check an iron. Advised on starting iron supplementation and he agrees. Will recheck CBC and iron studies. 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 Most recent A1c is 6.9. Will continue current antihyperglycemic medication regime with goal A1c to remain below 7.0 (3) Cervical stenosis of spine: Code(s): M48.02 - Spinal stenosis, cervical region Category: Medical Plan: As per HPI patient has a history of cervical spine fracture due to a fall. He does report some increased neck pain over last few months. Does use tramadol from time to time with decent affect. He is willing to try baclofen on a p.r.n. basis to help reduce strain and pain in his paraspinous musculature. He is not willing to do physical therapy again. (4) HTN (hypertension): Code(s): I10 - Essential (primary) hypertension Category: Medical Qualifiers: Hypertension type: essential hypertension Qualified Code(s): I10 - Essential (primary) hypertension Plan: Patient's blood pressure elevated today in office. Has been taking more NSAIDs lately due to his neck pain. Advised on reducing NSAID use an adding more acetaminophen. Will continue his current dose of antihypertensive medication at this time. Goal blood pressures to remain below 140/90 Medications: Changed From baclofen 10 mg PO BID 7 days 14 tabs 0RF M48.02 - Spinal stenosis, cervical region To baclofen 10 mg PO BID PRN 30 tabs 2RF muscle spasm 15 days M48.02 - Spinal stenosis, cervical region Refilled losartan 100 mg PO DAILY 90 caps 2RF 90 days I10 - Essential (primary) hypertension metoprolol tartrate 50 mg PO BID 180 tabs 2RF 90 days I49.3 - Ventricular premature depolarization metformin 1,000 mg PO BID 60 caps 5RF E11.9 - Type 2 diabetes mellitus without complications tramadol 50 mg PO BID PRN 14 tabs 0RF pain 7 days M16.12 - Unilateral primary osteoarthritis, left hip
== END 2025-08-13 14:17 | disposition home or self-care (01) ==
LOC: HO.HMCH 13:42
PROVIDERS: PCP Physician Assistant; Visit Provider Physician Assistant
DX: D50.9 Iron deficiency anemia, unspecified (principal); E11.65 Type 2 diabetes mellitus with hyperglycemia; M48.02 Spinal stenosis, cervical region; I10 Essential (primary) hypertension